=== PATIENT | female | born 1990 | race Caucasian/White ===

== ENCOUNTER → 2016-03-03 | Outpatient (CLI) | payer BC ==
--- NOTE | 2016-03-03 14:56 | MR ---
EXAMINATION TYPE: MR thoracic spine wo con DATE OF EXAM: 03/03/2016 11:23 AM COMPARISON: Thoracic spine x-ray December 26, 2015 HISTORY: Back pain per order. Sharp mid back pain for 2 months after work injury per patient. TECHNIQUE: Multiplanar, multisequence imaging of thoracic spine is performed without contrast FINDINGS: A Vitamin E marker is placed posteriorly for counting purposes and is at level of the T12-L 1 disc space. Spinal cord shows normal course, caliber, and signal as it courses the thoracic spine. Vertebral body heights and alignment are satisfactory. There is some multilevel disc space narrowin g in the midthoracic spine most prominent at T7-T8 level on sagittal image 7. Tiny posterior disc her niations are felt present at T8-T9 and T9-T10 level on sagittal image 7. Minimal multilevel anterior spurring in the mid to lower thoracic spine is present. There is some heterogeneous endplate changes involving the anterior T10 vertebra seen best on sagittal image 7. A few small scattered hemangiomas are noted at T6 and T9 vertebra on sagittal image 9. Review of the axial images confirm small central disc herniation effacing anterior thecal sac at T8-T 9 level on axial image 14 and right paracentral disc herniation effacing anterior thecal sac at T9-T1 0 level on axial image 11. Remainder axial levels are felt within normal limits. Bilateral neural for dylon are patent. Visualized portion of spleen is somewhat prominent, splenomegaly cannot be excluded . Clinical correlation advised. 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
== END | disposition home or self-care (01) ==
LOC: RADMRIMAIN 10:44
PROVIDERS: ATTEND Family Medicine
DX: M47.814 Spondylosis without myelopathy or radiculopathy, thoracic region (principal)
CPT/HCPCS: 72146

== ENCOUNTER → 2016-05-05 | Outpatient (CLI) | payer BC ==
[2016-05-06 11:59] LABS: Lettuce IgE Class CLASS 0
[2016-05-07 17:46] LABS: Tea IgG 4.8 mcg/mL (<2.0)
[2016-05-07 18:18] LABS: Corn IgG 16.9 mcg/mL (< 2.0); Peanut IgG 5.5 mcg/mL (< 2.0); Potato IgG 6.8 mcg/mL (< 2.0); Soybean IgG 5.5 mcg/mL (< 2.0); Tomato IgG 6.7 mcg/mL (< 2.0); Wheat IgG 51.7 mcg/mL (< 2.0)
[2016-05-10 14:53] LABS: Chocolate IgG 3.7 mcg/mL (< 2.0); Crab IgG < 2.0 mcg/mL (< 2.0); Orange IgG 4.7 mcg/mL (< 2.0); Pork IgG 3.5 mcg/mL (< 2.0); Walnut IgG 2.7 mcg/mL (< 2.0)
[2016-05-10 14:54] LABS: Banana IgG 89.3 mcg/mL (< 2.0); Celery IgG 5.4 mcg/mL (< 2.0); Chicken Meat IgG < 2.0 mcg/mL (< 2.0); Coffee IgG 15.9 mcg/mL (< 2.0); Egg Yolk IgG 19.3 mcg/mL (< 2.0)
[2016-05-10 14:55] LABS: Corn IgG 13.3 mcg/mL (< 2.0); Peanut IgG 3.9 mcg/mL (< 2.0); Potato IgG 5.2 mcg/mL (< 2.0); Rice IgG 16.4 mcg/mL (< 2.0); Soybean IgG 4.4 mcg/mL (< 2.0); Wheat IgG 46.2 mcg/mL (< 2.0)
[2016-05-12 09:50] LABS: Mis test requested (Blood) Onion IgG
[2016-05-12 09:57] LABS: Mis test requested (Blood) Shrimp IgG
[2016-05-12 10:00] LABS: Mis test requested (Blood) Salmon IgG
[2016-05-12 10:02] LABS: Mis test requested (Blood) Lobster IgG
[2016-05-12 10:05] LABS: Mis test requested (Blood) Strawberry IgG
== END | disposition home or self-care (01) ==
LOC: LABWHC1 15:43
PROVIDERS: ATTEND Otolaryngology
DX: L50.0 Allergic urticaria (principal); J30.89 Other allergic rhinitis; B44.89 Other forms of aspergillosis
CPT/HCPCS: 36415; 86001; 86003

== ENCOUNTER → 2017-05-16 | Outpatient (CLI) | payer BC ==
--- NOTE | 2017-05-16 15:04 | US ---
EXAMINATION TYPE: US transvaginal DATE OF EXAM: 05/16/2017 COMPARISON: NONE CLINICAL HISTORY: 27-year-old female R10.2 Pelvic/Peritoneal Pain. LLQ pain TECHNIQUE: With multiple transvaginal sonographic images of the pelvis are obtained. Date of LMP: 05/11/2017 Findings: Uterus: Anteverted measuring 6.4 x 3.3 x 2.0 cm with tiny cervical nabothian cysts. Endometrial Stripe: 0.3 cm, within normal limits. Right Ovary: 2.8 x 2.0 x 1.9 cm with follicular change. Left Ovary: 1.8 x 1.7 x 1.2 cm with a 1.5 cm dominant follicle or functional cyst. No evident adnexal abnormality or cul-de-sac free fluid. IMPRESSION: Follicular changes in both ovaries, dominant follicle on the left. No pelvic free fluid.
== END | disposition home or self-care (01) ==
LOC: RADUSWWP 14:20
PROVIDERS: ATTEND Family Medicine
DX: L73.8 Other specified follicular disorders (principal)
CPT/HCPCS: 76830

== ENCOUNTER → 2018-01-27 | Outpatient (CLI) | payer BC | END | disposition home or self-care (01) | LOC: LABWHC1 17:29 | PROVIDERS: ATTEND Emergency Medicine | DX: Z34.90 Encounter for supervision of normal pregnancy, unspecified, unspecified trimester (principal); Z3A.00 Weeks of gestation of pregnancy not specified | CPT/HCPCS: 36415; 84702 ==

== ENCOUNTER 2018-03-02 08:06 | Emergency (ER) | payer BC, OTHER ==
[2018-03-02 08:14] VITALS: TEMP 98.4
[2018-03-02] MEDS ORDERED: SODIUM CHLORIDE 0.9% 1,000 ML IV ONE (08:19)
--- NOTE | 2018-03-02 08:21 | ED ---
General Adult HPI - General Chief complaint: Vaginal Bleeding Stated complaint: cramping, 8 weeks Time Seen by Provider: 03/02/18 08:08 Source: patient, RN notes reviewed Mode of arrival: ambulatory Limitations: no limitations - History of Present Illness Initial comments: 28-year-old female presents emergency Department with chief complaint abdominal cramping and spotting during early . Patient states that she has not been seen [employer] at this time she states she is waiting for approval. Patient states that she's had some spotting and she went to last couple days. Denies any blood clots or tissue. Patient was seen at [facility] a few weeks ago and did have an ultrasound which showed no IUP at that time. Patient denies any fever, chills, dysuria. Patient denies any chest pain or shortness of breath. Patient states that she is A0. - Related Data Home Medications Medication Instructions Recorded Confirmed Calcium Carbonate [Tums] 1,000 mg PO TID PRN 03/02/18 03/02/18 Pnv,Calcium 72/Iron/Folic Acid 1 tab PO HS 03/02/18 03/02/18 [ Plus Tablet] Allergies Allergy/AdvReac Type Severity Reaction Status Date / Time codeine Allergy Nausea & Verified 03/02/18 08:40 Vomiting peanut Allergy Anaphylaxis Verified 03/02/18 08:40 sesame oil Allergy Anaphylaxis Verified 03/02/18 08:40 Sulfa (Sulfonamide Allergy Rash/Hives Verified 03/02/18 08:40 Antibiotics) tree nut Allergy Anaphylaxis Verified 03/02/18 08:40 Review of Systems ROS Statement: Those systems with pertinent positive or pertinent negative responses have been documented in the HPI. ROS Other: All systems not noted in ROS Statement are negative. Past Medical History Past Medical History: GERD/Reflux History of Any Multi-Drug Resistant Organisms: MRSA Date of last positivie culture/infection: 09/23/17 MDRO Source:: WOUND Past Surgical History: Adenoidectomy, Orthopedic Surgery, Tonsillectomy Past Psychological History: Anxiety Smoking Status: Former smoker Past Alcohol Use History: None Reported General Exam Limitations: no limitations General appearance: alert, in no apparent distress Head exam: Present: atraumatic, normocephalic, normal inspection Neck exam: Present: normal inspection. Absent: tenderness, meningismus, lymphadenopathy Respiratory exam: Present: normal lung sounds bilaterally. Absent: respiratory distress, wheezes, rales, rhonchi, stridor Cardiovascular Exam: Present: regular rate, normal rhythm, normal heart sounds. Absent: systolic murmur, diastolic murmur, rubs, gallop, clicks GI/Abdominal exam: Present: soft, normal bowel sounds. Absent: distended, tenderness, guarding, rebound, rigid Back exam: Absent: CVA tenderness (R), CVA tenderness (L) Skin exam: Present: warm, dry, intact, normal color. Absent: rash Course Vital Signs 03/02/18 08:08 Temperature 98.4 F Pulse Rate 88 Respiratory 16 Rate Blood Pressure 118/83 O2 Sat by Pulse 98 Oximetry Medical Decision Making - Medical Decision Making 28 show female presented to emergency department for abdominal cramping and spotting early . Patient has a positive blood type and does not need RhoGAM at this time. ultrasound shows demise at 8 weeks. No heart activity. I did explain this to the patient that she's having a miscarriage she should follow-up with [facility] [employer] and have repeat hCG. Current hCG is pending. Patient is hemodynamically stable, vitals unremarkable. Patient will be discharged with follow-up. - Lab Data Result diagrams: 03/02/18 08:30 03/02/18 08:30 Lab Results 03/02/18 03/02/18 03/02/18 Range/Units 08:30 08:30 08:30 WBC 6.8 (3.8-10.6) k/uL RBC 4.44 (3.80-5.40) m/uL Hgb 13.2 (11.4-16.0) gm/dL Hct 39.2 (34.0-46.0) % MCV 88.2 (80.0-100.0) fL MCH 29.7 (25.0-35.0) pg MCHC 33.7 (31.0-37.0) g/dL RDW 13.2 (11.5-15.5) % Plt Count 203 (150-450) k/uL Neutrophils % 61 % Lymphocytes % 29 % Monocytes % 3 % Eosinophils % 5 % Basophils % 1 % Neutrophils # 4.1 (1.3-7.7) k/uL Lymphocytes # 2.0 (1.0-4.8) k/uL Monocytes # 0.2 (0-1.0) k/uL Eosinophils # 0.3 (0-0.7) k/uL Basophils # 0.0 (0-0.2) k/uL Sodium 142 (137-145) mmol/L Potassium 3.7 (3.5-5.1) mmol/L Chloride 110 H (98-107) mmol/L Carbon Dioxide 22 (22-30) mmol/L Anion Gap 10 mmol/L BUN 11 (7-17) mg/dL Creatinine 0.59 (0.52-1.04) mg/dL Est GFR (CKD-EPI)AfAm >90 (>60 ml/min/1.73 sqM) Est GFR (CKD-EPI)NonAf >90 (>60 ml/min/1.73 sqM) Glucose 86 (74-99) mg/dL Calcium 9.5 (8.4-10.2) mg/dL Total Bilirubin 0.7 (0.2-1.3) mg/dL AST 22 (14-36) U/L ALT 19 (9-52) U/L Alkaline Phosphatase 44 (38-126) U/L Total Protein 7.2 (6.3-8.2) g/dL Albumin 4.5 (3.5-5.0) g/dL HCG, Quant 97506.4 mIU/mL Urine Color Urine Appearance (Clear) Urine pH (5.0-8.0) Ur Specific [place] (1.001-1.035) Urine Protein (Negative) Urine Glucose (UA) (Negative) Urine Ketones (Negative) Urine Blood (Negative) Urine Nitrite (Negative) Urine Bilirubin (Negative) Urine Urobilinogen (<2.0) mg/dL Ur Leukocyte Esterase (Negative) Urine RBC (0-5) /hpf Urine WBC (0-5) /hpf Ur Squamous Epith Cells (0-4) /hpf Urine Mucus (None) /hpf Blood Type A Positive Blood Type Recheck [facility] ONLY 03/02/18 Range/Units 08:30 WBC (3.8-10.6) k/uL RBC (3.80-5.40) m/uL Hgb (11.4-16.0) gm/dL Hct (34.0-46.0) % MCV (80.0-100.0) fL MCH (25.0-35.0) pg MCHC (31.0-37.0) g/dL RDW (11.5-15.5) % Plt Count (150-450) k/uL Neutrophils % % Lymphocytes % % Monocytes % % Eosinophils % % Basophils % % Neutrophils # (1.3-7.7) k/uL Lymphocytes # (1.0-4.8) k/uL Monocytes # (0-1.0) k/uL Eosinophils # (0-0.7) k/uL Basophils # (0-0.2) k/uL Sodium (137-145) mmol/L Potassium (3.5-5.1) mmol/L Chloride (98-107) mmol/L Carbon Dioxide (22-30) mmol/L Anion Gap mmol/L BUN (7-17) mg/dL Creatinine (0.52-1.04) mg/dL Est GFR (CKD-EPI)AfAm (>60 ml/min/1.73 sqM) Est GFR (CKD-EPI)NonAf (>60 ml/min/1.73 sqM) Glucose (74-99) mg/dL Calcium (8.4-10.2) mg/dL Total Bilirubin (0.2-1.3) mg/dL AST (14-36) U/L ALT (9-52) U/L Alkaline Phosphatase (38-126) U/L Total Protein (6.3-8.2) g/dL Albumin (3.5-5.0) g/dL HCG, Quant mIU/mL Urine Color Yellow Urine Appearance Clear (Clear) Urine pH 6.0 (5.0-8.0) Ur Specific [place] 1.018 (1.001-1.035) Urine Protein Negative (Negative) Urine Glucose (UA) Negative (Negative) Urine Ketones Negative (Negative) Urine Blood Negative (Negative) Urine Nitrite Negative (Negative) Urine Bilirubin Negative (Negative) Urine Urobilinogen <2.0 (<2.0) mg/dL Ur Leukocyte Esterase Trace H (Negative) Urine RBC <1 (0-5) /hpf Urine WBC <1 (0-5) /hpf Ur Squamous Epith Cells <1 (0-4) /hpf Urine Mucus Rare H (None) /hpf Blood Type Blood Type Recheck Disposition Clinical Impression: Miscarriage Disposition: HOME SELF-CARE Condition: Stable Instructions: Miscarriage (ED) Additional Instructions: Please return to the Emergency Department if symptoms worsen or any other concerns. Is patient prescribed a controlled substance at d/c from ED?: No Referrals: Antolin Griffiths MD [Primary Care Provider] - 1-2 days Time of Disposition: 10:15
[2018-03-02 09:00] LABS: Basophils % (A) 1 %; Eosinophils # (A) 0.3 k/uL (0-0.7); Eosinophils % (A) 5 %; HCT 39.2 % (34.0-46.0); HGB 13.2 gm/dL (11.4-16.0); Lymphocytes % (A) 29 %; MCH 29.7 pg (25.0-35.0); MCHC 33.7 g/dL (31.0-37.0); MCV 88.2 fL (80.0-100.0); Mean Platelet Volume 6.7; Monocytes # (A) 0.2 k/uL (0-1.0); Monocytes % (A) 3 %; Neutrophils # (A) 4.1 k/uL (1.3-7.7); Neutrophils % (A) 61 %; Platelet Count 203 k/uL (150-450); RBC 4.44 m/uL (3.80-5.40); RDW 13.2 % (11.5-15.5); WBC 6.8 k/uL (3.8-10.6)
[2018-03-02 09:01] LABS: Appearance,Urine Clear (Clear); Bilirubin,Urine Negative (Negative); Blood,Urine Negative (Negative); Color,Urine Yellow; Glucose,Urine (UA) Negative (Negative); Ketones,Urine Negative (Negative); Leukocyte Esterase,Urine Trace (Negative); Mucus,Urine Rare /hpf; Nitrite,Urine Negative (Negative); Protein,Urine Negative (Negative); RBC,Urine <1 /hpf (0-5); Specific Gravity,Urine 1.018 (1.001-1.035); Squamous Epithelial Cell,Urine <1 /hpf (0-4); Urobilinogen,Urine <2.0 mg/dL (<2.0)
[2018-03-02 09:18] LABS: ALT 19 U/L (9-52); AST 22 U/L (14-36); Albumin 4.5 g/dL (3.5-5.0); Alkaline Phosphatase 44 U/L (38-126); Anion Gap 10 mmol/L; Blood Urea Nitrogen 11 mg/dL (7-17); Calcium 9.5 mg/dL (8.4-10.2); Carbon Dioxide 22 mmol/L (22-30); Chloride 110 mmol/L (98-107); Glucose 86 mg/dL (74-99); Potassium 3.7 mmol/L (3.5-5.1); Sodium 142 mmol/L (137-145); Total Bilirubin 0.7 mg/dL (0.2-1.3); Total Protein 7.2 g/dL (6.3-8.2)
--- NOTE | 2018-03-02 10:02 | US ---
EXAMINATION TYPE: Transabdominal DATE OF EXAM: 05/17/17 COMPARISON: NONE CLINICAL HISTORY: Pain. Pt states cramping with brown spotting x 4 days EXAM PERFORMED: Transvaginal (TV) and Transabdominal (TA) EXAM MEASUREMENTS: GESTATIONAL AGE / DATING Physician Established: Not yet established Dates by LMP: (9 weeks/6 days) EDC: 09/29/2018 Dates by First Scan: No prior Dates by Current Scan for: (8 weeks/0 days) EDC: 10/12/2018 MATERNAL ANATOMY Uterus: 8.7 x 5.0 x 5.8 cm Right Ovary: 3.1 x 1.9 x 2.1 cm Left Ovary: 2.7 x 1.8 x 1.5 cm Post CDS / Adnexa: Small amount of free fluid post CDS Presence of corpus luteal cyst: Right ovary= 1.6 x 1.9 x 1.3 cm Presence of subchorionic bleed: No, Although there appears to be a 2 mm implantation bleed. GESTATION / SURVEY CRL: 1.5 cm (8 weeks/0 days) Yolk Sac (normal less than 6mm): 3mm IUP: Demise Date of LMP: 12/23/2017 8 week demise IMPRESSION: demise as color-flow, power flow, and M-mode fail to demonstrate cardiac activity. Confirmation with down stranding beta prior to D&C is recommended.
[2018-03-02 10:11] LABS: HCG,Quantitative Serum 31037.4 mIU/mL
[2018-03-02 10:24] VITALS: BP 126/76; PULSE 83; RESP 18
== END 2018-03-02 10:22 | disposition home or self-care (01) ==
LOC: EC 08:06
DX: O03.9 Complete or unspecified spontaneous abortion without complication (principal); Z3A.08 8 weeks gestation of pregnancy; Z88.5 Allergy status to narcotic agent; Z88.2 Allergy status to sulfonamides; Z91.010 Allergy to peanuts; Z91.018 Allergy to other foods; Z87.891 Personal history of nicotine dependence
CPT/HCPCS: 36415; 76801; 76817; 80053; 81001; 84702; 85025; 86900; 86901; 96360; 99284

== ENCOUNTER → 2018-03-04 | Outpatient (CLI) | payer OTHER | END | disposition home or self-care (01) | LOC: LABWHC1 09:52 | PROVIDERS: ATTEND Physician Assistant | DX: O03.9 Complete or unspecified spontaneous abortion without complication (principal) | CPT/HCPCS: 36415; 84702 ==

== ENCOUNTER 2018-03-06 15:57 | Emergency (ER) | payer OTHER ==
[2018-03-06 16:04] VITALS: RESP 16
[2018-03-06] MEDS ORDERED: SODIUM CHLORIDE 0.9% 1,000 ML IV ONE (17:16)
[2018-03-06 17:44] LABS: Basophils % (A) 0 %; Eosinophils # (A) 0.4 k/uL (0-0.7); Eosinophils % (A) 4 %; HCT 36.4 % (34.0-46.0); HGB 12.6 gm/dL (11.4-16.0); Lymphocytes # (A) 3.1 k/uL (1.0-4.8); Lymphocytes % (A) 28 %; MCH 30.2 pg (25.0-35.0); MCHC 34.6 g/dL (31.0-37.0); MCV 87.2 fL (80.0-100.0); Mean Platelet Volume 9.1; Monocytes # (A) 0.3 k/uL (0-1.0); Monocytes % (A) 3 %; Neutrophils # (A) 6.9 k/uL (1.3-7.7); Neutrophils % (A) 63 %; RBC 4.17 m/uL (3.80-5.40); RDW 13.1 % (11.5-15.5); WBC 10.9 k/uL (3.8-10.6)
[2018-03-06 17:52] LABS: Appearance,Urine Clear (Clear); Bilirubin,Urine Negative (Negative); Blood,Urine Large (Negative); Color,Urine Yellow; Glucose,Urine (UA) Negative (Negative); Ketones,Urine Negative (Negative); Leukocyte Esterase,Urine Small (Negative); Mucus,Urine Rare /hpf; Nitrite,Urine Negative (Negative); PH, Urine 5.5 (5.0-8.0); Protein,Urine Trace (Negative); RBC,Urine >182 /hpf (0-5); Specific Gravity,Urine 1.015 (1.001-1.035); Squamous Epithelial Cell,Urine 1 /hpf (0-4); Urobilinogen,Urine <2.0 mg/dL (<2.0); WBC,Urine 10 /hpf (0-5)
[2018-03-06 18:18] LABS: Platelet Count 79 k/uL (150-450)
[2018-03-06 18:22] LABS: ALT 25 U/L (9-52); AST 24 U/L (14-36); Albumin 4.5 g/dL (3.5-5.0); Alkaline Phosphatase 60 U/L (38-126); Anion Gap 10 mmol/L; Blood Urea Nitrogen 13 mg/dL (7-17); Calcium 9.6 mg/dL (8.4-10.2); Carbon Dioxide 22 mmol/L (22-30); Chloride 109 mmol/L (98-107); Glucose 84 mg/dL (74-99); Potassium 3.9 mmol/L (3.5-5.1); Sodium 141 mmol/L (137-145); Total Bilirubin 0.4 mg/dL (0.2-1.3); Total Protein 7.4 g/dL (6.3-8.2)
[2018-03-06 18:23] LABS: INR 0.9 (<1.2); Partial Thromboplastin Time 24.5 sec (22.0-30.0)
[2018-03-06 19:33] LABS: HCG,Quantitative Serum 21191.6 mIU/mL
--- NOTE | 2018-03-06 19:52 | US ---
EXAMINATION TYPE: Transabdominal DATE OF EXAM: 05/17/17 COMPARISON: 03/02/2018 ultrasound CLINICAL HISTORY: Cramping and bleeding, had missed AB . Scheduled for D&C tomorrow. EXAM PERFORMED: Transabdominal EXAM MEASUREMENTS: There is limited visualization on this transabdominal examination. The uterus measures 8.97 x 4.62 x 5.48 cm. The fundal gestational sac is mildly lobulated. The pole measuring 0.88 cm, corresponding to 6 week 6 day gestation. No cardiac activity was seen during the examination, which utilized grayscale, color Doppler, and pulsed wave Doppler son ographic techniques. There is no cul-de-sac fluid. IMPRESSION: No cardiac activity demonstrated.
--- NOTE | 2018-03-06 19:55 | ED ---
General Adult HPI <[place] - Last Filed: 03/06/18 20:27> - General Source: patient, RN notes reviewed Mode of arrival: ambulatory Limitations: no limitations <Mode Rapp - Last Filed: 03/06/18 20:48> - General Chief complaint: Vaginal Bleeding Stated complaint: Vaginal bleeding Time Seen by Provider: 03/06/18 16:39 - History of Present Illness Initial comments: The patient was seen and examined. All diagnostics are reviewed. The case is discussed with Dr. Colby and he is agreeable with pain control and discharged home to follow up with scheduled D&C in the a.m. Patient is agreeable as well. Return parameters are discussed. The case is discussed with the PA and I agree with the findings as documented. ([place]) 28-year-old female presents to the emergency department for miscarriage. Patient 8 weeks currently. Patient states that she was diagnosed with a miscarriage 5 days ago. She states that she has a DNC scheduled with Dr. Laboy tomorrow at 10 AM. She states that she had worsening cramping today as well as bleeding. She states that when she called the office they told her to come to the emergency department in case there was tissue in her cervix that we could remove. Patient states she has felt somewhat lightheaded today, denies chest pain or shortness of breath. Patient did have a confirmed IUP. Patient' s ultrasound from 5 days ago showed demise. Patient states she passed a small piece of tissue today but has not passed any other clots or tissue. Patient has no other complaints at this time including shortness of breath, chest pain, nausea or vomiting, headache, or visual changes. (Mode Rpap) - Related Data Home Medications Medication Instructions Recorded Confirmed Acetaminophen Tab [Tylenol Tab] 650 mg PO Q6H PRN 03/06/18 03/06/18 Omeprazole 20 mg PO BID 03/06/18 03/06/18 Previous Rx's Medication Instructions Recorded HYDROcodone/APAP 5-325MG [[place] 1 tab PO Q6HR PRN #10 tab 03/06/18 5-325] Ondansetron [Zofran ODT] 4 mg PO Q8HR PRN #7 tab 03/06/18 Allergies Allergy/AdvReac Type Severity Reaction Status Date / Time codeine Allergy Nausea & Verified 03/06/18 16:45 DIARRHEA ibuprofen [From Motrin] Allergy Rash/Hives Verified 03/06/18 16:45 peanut Allergy Anaphylaxis Verified 03/06/18 16:45 sesame oil Allergy Anaphylaxis Verified 03/06/18 16:45 Sulfa (Sulfonamide Allergy Rash/Hives Verified 03/06/18 16:45 Antibiotics) tree nut Allergy Anaphylaxis Verified 03/06/18 16:45 Review of Systems ROS Other: All systems not noted in ROS Statement are negative. <[place] - Last Filed: 03/06/18 20:27> ROS Other: All systems not noted in ROS Statement are negative. <Mode Rapp - Last Filed: 03/06/18 20:48> ROS Statement: Those systems with pertinent positive or pertinent negative responses have been documented in the HPI. Past Medical History Past Medical History: GERD/Reflux History of Any Multi-Drug Resistant Organisms: MRSA Date of last positivie culture/infection: 09/23/17 MDRO Source:: WOUND-VAGINA Past Surgical History: Adenoidectomy, Orthopedic Surgery, Tonsillectomy Additional Past Surgical History / Comment(s): LEFT MIDDLE FINGER SURGERY Past Anesthesia/Blood Transfusion Reactions: Motion Sickness Past Psychological History: Anxiety Smoking Status: Former smoker - Past Family History Father Family Medical History: Cancer Additional Family Medical History / Comment(s): COLON CANCER <Mode Rapp P - Last Filed: 03/06/18 20:48> General Exam Limitations: no limitations General appearance: alert, in no apparent distress Head exam: Present: atraumatic, normocephalic, normal inspection Eye exam: Present: normal appearance, PERRL, EOMI. Absent: scleral icterus, conjunctival injection, periorbital swelling ENT exam: Present: normal exam, mucous membranes moist Neck exam: Present: normal inspection, full ROM. Absent: tenderness, meningismus, lymphadenopathy Respiratory exam: Present: normal lung sounds bilaterally. Absent: respiratory distress, wheezes, rales, rhonchi, stridor Cardiovascular Exam: Present: regular rate, normal rhythm, normal heart sounds. Absent: systolic murmur, diastolic murmur, rubs, gallop, clicks GI/Abdominal exam: Present: soft, normal bowel sounds. Absent: distended, tenderness, guarding, rebound, rigid External exam: Present: normal external exam. Absent: erythema, swelling, lesions, lacerations, ecchymosis Speculum exam: Present: vaginal bleeding (Patient does have mild vaginal bleeding noted.). Absent: normal speculum exam, tissue (No tissue evident) By manual exam: Present: adnexal tenderness, uterine tenderness. Absent: normal by manual exam, cervical motion tenderness, adnexal mass, uterine enlargement Neurological exam: Present: alert, oriented X3, CN II-XII intact <Mode Rapp - Last Filed: 03/06/18 20:48> Vital Signs 03/06/18 16:02 Temperature 98.2 F Pulse Rate 95 Respiratory 16 Rate Blood Pressure 141/90 O2 Sat by Pulse 98 Oximetry Medical Decision Making - Lab Data Result diagrams: 03/06/18 17:10 03/06/18 17:55 <[place] - Last Filed: 03/06/18 20:27> - Lab Data Result diagrams: 03/06/18 17:10 03/06/18 17:55 - Radiology Data Radiology results: report reviewed, image reviewed <Mode Rapp - Last Filed: 03/06/18 20:48> - Medical Decision Making 28-year-old presents to the emergency department for miscarriage. Patient had a confirmed demise 5 days ago. She has a D&C scheduled with Dr. Donaldson tomorrow morning but had worsening pain and bleeding today so presented to the emergency department. On exam there is mild vaginal bleeding without significant hemorrhage. Patient does have tenderness on speculum exam. Cervix does appear open but I do not see any tissue. CBC CMP unremarkable. Hemoglobin is stable. Platelet count has decreased somewhat to 79 however patient is only having minimal bleeding. CMP unremarkable. CT Quant is trending down from 5 days ago. Urine does not show any significant evidence of infection. Patient is a positive not requiring RhoGAM. Ultrasound was reordered patient is scheduled for D&C tomorrow to evaluate for any remaining tissue which does show tissue without cardiac activity. Discussed case with Dr. Julian who contacted Dr. Monte as he is on-call for Dr. Donaldson. At this time he recommends pain control for patient and to follow-up tomorrow morning at her scheduled D&C. Patient is agreeable to this plan and states she only lives 2 [address] from the hospital and it is not an inconvenience. Patient will return if she has any worsening symptoms. (Mode Rapp) - Lab Data Lab Results 03/06/18 03/06/18 03/06/18 Range/Units 17:10 17:10 17:10 WBC 10.9 H (3.8-10.6) k/uL RBC 4.17 (3.80-5.40) m/uL Hgb 12.6 (11.4-16.0) gm/dL Hct 36.4 (34.0-46.0) % MCV 87.2 (80.0-100.0) fL MCH 30.2 (25.0-35.0) pg MCHC 34.6 (31.0-37.0) g/dL RDW 13.1 (11.5-15.5) % Plt Count 79 L D (150-450) k/uL Neutrophils % 63 % Lymphocytes % 28 % Monocytes % 3 % Eosinophils % 4 % Basophils % 0 % Neutrophils # 6.9 (1.3-7.7) k/uL Lymphocytes # 3.1 (1.0-4.8) k/uL Monocytes # 0.3 (0-1.0) k/uL Eosinophils # 0.4 (0-0.7) k/uL Basophils # 0.0 (0-0.2) k/uL Manual Slide Review Performed PT (9.0-12.0) sec INR (<1.2) APTT (22.0-30.0) sec Sodium (137-145) mmol/L Potassium (3.5-5.1) mmol/L Chloride (98-107) mmol/L Carbon Dioxide (22-30) mmol/L Anion Gap mmol/L BUN (7-17) mg/dL Creatinine (0.52-1.04) mg/dL Est GFR (CKD-EPI)AfAm (>60 ml/min/1.73 sqM) Est GFR (CKD-EPI)NonAf (>60 ml/min/1.73 sqM) Glucose (74-99) mg/dL Calcium (8.4-10.2) mg/dL Total Bilirubin (0.2-1.3) mg/dL AST (14-36) U/L ALT (9-52) U/L Alkaline Phosphatase (38-126) U/L Total Protein (6.3-8.2) g/dL Albumin (3.5-5.0) g/dL HCG, Quant mIU/mL Urine Color Yellow Urine Appearance Clear (Clear) Urine pH 5.5 (5.0-8.0) Ur Specific [place] 1.015 (1.001-1.035) Urine Protein Trace H (Negative) Urine Glucose (UA) Negative (Negative) Urine Ketones Negative (Negative) Urine Blood Large H (Negative) Urine Nitrite Negative (Negative) Urine Bilirubin Negative (Negative) Urine Urobilinogen <2.0 (<2.0) mg/dL Ur Leukocyte Esterase Small H (Negative) Urine RBC >182 H (0-5) /hpf Urine WBC 10 H (0-5) /hpf Ur Squamous Epith Cells 1 (0-4) /hpf Urine Mucus Rare H (None) /hpf Blood Type A Positive Blood Type Recheck No 03/06/18 03/06/18 Range/Units 17:55 17:55 WBC (3.8-10.6) k/uL RBC (3.80-5.40) m/uL Hgb (11.4-16.0) gm/dL Hct (34.0-46.0) % MCV (80.0-100.0) fL MCH (25.0-35.0) pg MCHC (31.0-37.0) g/dL RDW (11.5-15.5) % Plt Count (150-450) k/uL Neutrophils % % Lymphocytes % % Monocytes % % Eosinophils % % Basophils % % Neutrophils # (1.3-7.7) k/uL Lymphocytes # (1.0-4.8) k/uL Monocytes # (0-1.0) k/uL Eosinophils # (0-0.7) k/uL Basophils # (0-0.2) k/uL Manual Slide Review PT 10.0 (9.0-12.0) sec INR 0.9 (<1.2) APTT 24.5 (22.0-30.0) sec Sodium 141 (137-145) mmol/L Potassium 3.9 (3.5-5.1) mmol/L Chloride 109 H (98-107) mmol/L Carbon Dioxide 22 (22-30) mmol/L Anion Gap 10 mmol/L BUN 13 (7-17) mg/dL Creatinine 0.74 (0.52-1.04) mg/dL Est GFR (CKD-EPI)AfAm >90 (>60 ml/min/1.73 sqM) Est GFR (CKD-EPI)NonAf >90 (>60 ml/min/1.73 sqM) Glucose 84 (74-99) mg/dL Calcium 9.6 (8.4-10.2) mg/dL Total Bilirubin 0.4 (0.2-1.3) mg/dL AST 24 (14-36) U/L ALT 25 (9-52) U/L Alkaline Phosphatase 60 (38-126) U/L Total Protein 7.4 (6.3-8.2) g/dL Albumin 4.5 (3.5-5.0) g/dL HCG, Quant 09415.6 mIU/mL Urine Color Urine Appearance (Clear) Urine pH (5.0-8.0) Ur Specific [place] (1.001-1.035) Urine Protein (Negative) Urine Glucose (UA) (Negative) Urine Ketones (Negative) Urine Blood (Negative) Urine Nitrite (Negative) Urine Bilirubin (Negative) Urine Urobilinogen (<2.0) mg/dL Ur Leukocyte Esterase (Negative) Urine RBC (0-5) /hpf Urine WBC (0-5) /hpf Ur Squamous Epith Cells (0-4) /hpf Urine Mucus (None) /hpf Blood Type Blood Type Recheck Disposition <[place] - Last Filed: 03/06/18 20:27> Is patient prescribed a controlled substance at d/c from ED?: Yes When asked, does pt state using other controlled substances?: No If prescribed controlled substance>3 days was MAPS reviewed?: Prescribed <3 Days If opioid is for acute pain is fill amount 7 days or less?: Yes If Rx opioid, was Start Talking consent form obtained?: Yes Time of Disposition: 20:35 <Mode Rapp - Last Filed: 03/06/18 20:48> Clinical Impression: Miscarriage Disposition: HOME SELF-CARE Condition: Good Additional Instructions: Please follow up with Dr. Donaldson tomorrow at your scheduled D&C. Please take [place] for pain. Please return if you have any worsening symptoms. Prescriptions: HYDROcodone/APAP 5-325MG [[place] 5-325] 1 tab PO Q6HR PRN #10 tab PRN Reason: Pain Ondansetron [Zofran ODT] 4 mg PO Q8HR PRN #7 tab PRN Reason: Nausea Referrals: Antolin Griffiths MD [Primary Care Provider] - 1-2 days Criss Donaldson DO [Doctor of Osteopathic Medicine] - 1-2 days
[2018-03-06] MEDS ORDERED: MORPHINE SULFATE 4 MG/ML SYRINGE IVP STA (20:31)
[2018-03-06] MEDS ORDERED: ONDANSETRON 4 MG/2 ML VIAL IVP STA (20:31)
[2018-03-06] MEDS ORDERED: ONDANSETRON 4 MG ODT STARTER PACK 2 TAB BTL PO STA (20:57)
[2018-03-06 21:15] VITALS: BP 138/80; PULSE 82; TEMP 97.7
== END 2018-03-06 21:15 | disposition home or self-care (01) ==
LOC: EC 15:57
DX: O03.9 Complete or unspecified spontaneous abortion without complication (principal); O99.611 Diseases of the digestive system complicating pregnancy, first trimester; K21.9 Gastro-esophageal reflux disease without esophagitis; Z86.14 Personal history of Methicillin resistant Staphylococcus aureus infection; Z87.891 Personal history of nicotine dependence; Z79.899 Other long term (current) drug therapy; Z88.5 Allergy status to narcotic agent; Z88.6 Allergy status to analgesic agent; Z91.010 Allergy to peanuts; Z91.018 Allergy to other foods; Z88.2 Allergy status to sulfonamides; Z3A.01 Less than 8 weeks gestation of pregnancy
CPT/HCPCS: 36415; 86900; 86901; 80053; 85025; 85610; 85730; 81001; 84702; 76801; 99284; 96374; 96375; 96361; J2270; J2405; S0119

== ENCOUNTER 2018-03-07 10:19 | Day surgery (SDC) | payer OTHER ==
[2018-03-06 15:13] VITALS: BMI 31.4
--- NOTE | 2018-03-07 10:04 | P.HPOB ---
History of Present Illness H&P Date: 03/07/18 Chief Complaint: missed AB This is a 28-year-old 1 para 0010 at 9 6/7 weeksthat presented to the emergency department this weekend and was diagnosed with missed AB, IUP 8 weeks 0 days heart tones was noted. Patient was seen in the emergency department with complaints of vaginal bleeding off-and-on for 4 days. Moderate bleeding was noted yesterday. She does note painful pelvic cramping and is using ibuprofen with some relief. Blood type is A+. Review of Systems Constitutional: Denies chills, Denies fatigue, Denies fever Ears, nose, mouth and throat: Denies headache Cardiovascular: Denies leg edema Respiratory: Denies cough, Denies dyspnea Gastrointestinal: Denies constipation, Denies diarrhea, Denies nausea, Denies vomiting Genitourinary: Reports Past Medical History Past Medical History: GERD/Reflux History of Any Multi-Drug Resistant Organisms: MRSA Date of last positivie culture/infection: 09/23/17 MDRO Source:: WOUND-VAGINA Past Surgical History: Adenoidectomy, Orthopedic Surgery, Tonsillectomy Additional Past Surgical History / Comment(s): LEFT MIDDLE FINGER SURGERY Past Anesthesia/Blood Transfusion Reactions: Motion Sickness Smoking Status: Former smoker - Past Family History Father Family Medical History: Cancer Additional Family Medical History / Comment(s): COLON CANCER Medications and Allergies Home Medications Medication Instructions Recorded Confirmed Type Acetaminophen Tab [Tylenol Tab] 650 mg PO Q6H PRN 03/06/18 03/06/18 History HYDROcodone/APAP 5-325MG [[place] 1 tab PO Q6HR PRN #10 tab 03/06/18 Rx 5-325] Omeprazole 20 mg PO BID 03/06/18 03/06/18 History Ondansetron [Zofran ODT] 4 mg PO Q8HR PRN #7 tab 03/06/18 Rx Allergies Allergy/AdvReac Type Severity Reaction Status Date / Time codeine Allergy Nausea & Verified 03/06/18 16:45 DIARRHEA ibuprofen [From Motrin] Allergy Rash/Hives Verified 03/06/18 16:45 peanut Allergy Anaphylaxis Verified 03/06/18 16:45 sesame oil Allergy Anaphylaxis Verified 03/06/18 16:45 Sulfa (Sulfonamide Allergy Rash/Hives Verified 03/06/18 16:45 Antibiotics) tree nut Allergy Anaphylaxis Verified 03/06/18 16:45 Exam Osteopathic Statement: *. No significant issues noted on an osteopathic structural exam other than those noted in the History and Physical/Consult. Intake and Output 03/06/18 03/07/18 03/07/18 22:59 06:59 14:59 Other: Weight 81.647 kg In general this is a well-nourished well-developed female in no acute distress. Lungs are clear to auscultation bilaterally, heart is noted to have regular rate and rhythm soft and nontender. Assessment and Plan (1) Missed Status: Acute Code(s): O02.1 - MISSED SNOMED Code(s): 23881967 Plan: Patient elects suction D&C. Surgery was reviewed and all questions are answered.
[~2018-03-07 10:19] MED LIST: Pre Op ABX Message 1 EACH MISC MISCELLANE ONE
[2018-03-07 11:00] VITALS: RESP 16
[2018-03-07] MEDS ORDERED: METHYLERGONOVINE 0.2 MG/ML 1 ML AMP ONE (11:08)
[2018-03-07] MEDS ORDERED: PROPOFOL 10 MG/ML 20 ML VIAL IV ONE (11:08)
[2018-03-07] MEDS ORDERED: LACTATED RINGERS 1,000 ML IV ONE (11:08)
[2018-03-07] MEDS ORDERED: MIDAZOLAM 2 MG/2 ML VIAL ONE (11:08)
[2018-03-07] MEDS ORDERED: fentaNYL (PF) 50 MCG/ML 2 ML AMP ONE (11:08)
[2018-03-07] MEDS ORDERED: DEXAMETHASONE SOD PHOS (MDV) 100 MG/10 ML VIAL IVP ONE (11:09)
[2018-03-07] MEDS ORDERED: LIDOCAINE 1% 20 ML VIAL (10MG/ML) FOR IV START INTRADERMA ONE (11:09)
[2018-03-07] MEDS ORDERED: ONDANSETRON 4 MG/2 ML VIAL IVP ONE ×2 (11:10→12:56)
--- NOTE | 2018-03-07 11:38 | P.OP ---
Date of Procedure: 03/07/18 Preoperative Diagnosis: Missed AB Postoperative Diagnosis: Same Procedure(s) Performed: Suction dilation and curettage Anesthesia: MAC Surgeon: Criss Donaldson Estimated Blood Loss (ml): 10 IV fluids (ml): 500 Urine output (ml): 25 Pathology: other (Uterine contents) Condition: stable Disposition: PACU Indications for Procedure: Missed AB 8 weeks 0 days, Rh+ Operative Findings: Moderate amount of products of conception Description of Procedure: Patient was seen in the preoperative area and procedure was reviewed in detail. All questions were answered. Patient was taken back to the operating suite where general anesthesia was obtained without difficulty by the anesthesia department. She was then prepped and draped in normal sterile fashion in the dorsal lithotomy position. A red rubber catheter was used to drain the bladder of clear yellow urine. A weighted speculum posterior vaginal vault intralipids the cervix is visualized and grasped a single-tooth tenaculum. Endocervical canal was then dilated 8 curved suction curet was advanced into the uterine cavity to clear the uterus of a moderate amount of products of conception 2 passes were used to clear when no further products were visualized in the suction curette. A sharp gentle curettage was performed and the suction curet was passed once again with no further products of conception noted. Afterwards the single-tooth tenaculum was taken off of the anterior lip of the cervix, hemostasis was appreciated. Minimal bleeding was noted coming from the cervical os. All counts were correct 2 patient tolerated procedure well and was taken to recovery awake and in stable condition.
[2018-03-07 11:57] VITALS: TEMP 99.2
[2018-03-07] MEDS ORDERED: HYDROmorphone 0.5 MG/0.5 ML SYRINGE IVP ONE ×2 (12:01→12:23)
[2018-03-07 13:11] VITALS: BP 117/78; PULSE 90
== END 2018-03-07 13:38 | disposition home or self-care (01) ==
LOC: OR 10:19
PROVIDERS: ATTEND Obstetrics & Gynecology Obstetrics
DX: O02.1 Missed abortion (principal); K21.9 Gastro-esophageal reflux disease without esophagitis; F41.9 Anxiety disorder, unspecified; Z87.891 Personal history of nicotine dependence; Z79.899 Other long term (current) drug therapy; Z88.5 Allergy status to narcotic agent; Z88.2 Allergy status to sulfonamides; Z86.14 Personal history of Methicillin resistant Staphylococcus aureus infection
CPT/HCPCS: 86900; 86901; 88305; 86850; 59820; J2250; J2210; J2405; J3010; J1100; J2704; J1170

== ENCOUNTER → 2018-03-29 | Outpatient (CLI) | payer OTHER ==
[2018-03-29 22:58] LABS: HCG,Quantitative Serum 8.4 mIU/mL
[2018-03-29 23:10] LABS: Thyroid Peroxidase Antibodies <28.0 U/mL (0.0-60.0)
[2018-03-29 23:30] LABS: Hepatitis B Surface AB- Quant 3.5 mIU/mL
== END | disposition home or self-care (01) ==
LOC: LABWHC1 16:49
PROVIDERS: ATTEND Nurse Practitioner Family
DX: R53.83 Other fatigue (principal)
CPT/HCPCS: 36415; 84439; 84443; 84702; 86376; 86706

== ENCOUNTER → 2018-04-13 | Outpatient (CLI) | payer OTHER | LOC: LABWHC1 16:57 | PROVIDERS: ATTEND Otolaryngology | DX: Z09 Encounter for follow-up examination after completed treatment for conditions other than malignant neoplasm (principal); Z98.890 Other specified postprocedural states | CPT/HCPCS: 36415; 84702 ==

== ENCOUNTER 2018-07-11 09:31 | Emergency (ER) | payer OTHER ==
[2018-07-11 09:59] VITALS: RESP 18
--- NOTE | 2018-07-11 10:15 | ED ---
General Adult HPI - General Chief complaint: Vaginal Bleeding Stated complaint: 7 wks /bleeding Time Seen by Provider: 07/11/18 10:04 Source: patient, RN notes reviewed Mode of arrival: ambulatory Limitations: no limitations - History of Present Illness Initial comments: 28-year-old female presents to the emergency department for a chief c omplaint of vaginal bleeding. Patient is currently 6 weeks 6 days . Patient states she began having a moderate amount of bleeding one hour ago. States she has had a miscarriage in the past so became concerned. Patient did try to contact her [facility] but was unable to obtain an appointment. Patient admits to cramping but denies any pelvic pain. Patient does states she's had a confirmed intrauterine . Patient has no other complaints at this time including shortness of breath, chest pain, abdominal pain, nausea or vomiting, headache, or visual changes. - Related Data Home Medications Medication Instructions Recorded Confirmed Ufw-Cout-Kjkse Acid 1 cap PO DAILY 07/11/18 07/11/18 [-U Capsule (formulary)] Allergies Allergy/AdvReac Type Severity Reaction Status Date / Time codeine Allergy Nausea & Verified 07/11/18 10:20 DIARRHEA ibuprofen [From Motrin] Allergy Rash/Hives Verified 07/11/18 10:20 peanut Allergy Anaphylaxis Verified 07/11/18 10:20 sesame oil Allergy Anaphylaxis Verified 07/11/18 10:20 Sulfa (Sulfonamide Allergy Rash/Hives Verified 07/11/18 10:20 Antibiotics) tree nut Allergy Anaphylaxis Verified 07/11/18 10:20 Review of Systems ROS Statement: Those systems with pertinent positive or pertinent negative responses have been documented in the HPI. ROS Other: All systems not noted in ROS Statement are negative. Past Medical History Past Medical History: GERD/Reflux History of Any Multi-Drug Resistant Organisms: MRSA Date of last positivie culture/infection: 09/23/17 MDRO Source:: WOUND-VAGINA Past Surgical History: Adenoidectomy, Orthopedic Surgery, Tonsillectomy Additional Past Surgical History / Comment(s): LEFT MIDDLE FINGER SURGERY, Past Anesthesia/Blood Transfusion Reactions: Motion Sickness Past Psychological History: Anxiety Smoking Status: Former smoker Past Alcohol Use History: Occasional Past Drug Use History: None Reported - Past Family History Father Family Medical History: Cancer Additional Family Medical History / Comment(s): COLON CANCER General Exam Limitations: no limitations General appearance: alert, in no apparent distress Head exam: Present: atraumatic, normocephalic, normal inspection Eye exam: Present: normal appearance, PERRL, EOMI. Absent: scleral icterus, conjunctival injection, periorbital swelling ENT exam: Present: normal exam, mucous membranes moist Neck exam: Present: normal inspection, full ROM. Absent: tenderness, meningismus, lymphadenopathy Respiratory exam: Present: normal lung sounds bilaterally. Absent: respiratory distress, wheezes, rales, rhonchi, stridor Cardiovascular Exam: Present: regular rate, normal rhythm, normal heart sounds. Absent: systolic murmur, diastolic murmur, rubs, gallop, clicks GI/Abdominal exam: Present: soft, normal bowel sounds. Absent: distended, tenderness, guarding, rebound, rigid External exam: Present: normal external exam. Absent: erythema, swelling, lesions, lacerations, ecchymosis Speculum exam: Present: normal speculum exam, vaginal bleeding (minimal bleeding noted). Absent: erythema, vaginal discharge, cervical discharge, foreign body By manual exam: Present: normal by manual exam. Absent: cervical motion tenderness, adnexal tenderness, adnexal mass, uterine enlargement, uterine tenderness Neurological exam: Present: alert, oriented X3, CN II-XII intact Psychiatric exam: Present: normal affect, normal mood Course Vital Signs 07/11/18 07/11/18 07/11/18 09:56 13:07 13:52 Temperature 99 F 98.0 F 98.5 F Pulse Rate 98 76 Respiratory 18 18 Rate Blood Pressure 128/80 116/74 O2 Sat by Pulse 98 98 Oximetry Medical Decision Making - Medical Decision Making 28-year-old presents to the emergency department for a chief Vaginal bleeding. Patient currently 6 weeks 6 days . Had a moderate amount of bleeding for 1 hour. Has had a miscarriage in the past so became concerned. Mild cramping noted. On exam patient is well-appearing. Pelvic reveals only minimal bleeding. CBC CMP unremarkable. HCG Quant 20,000. Urine does not show any evidence of infection. Ultrasound does show an irregular appearing intrauterine gestational sac without pole seen. Suspicious of failure/and embryonic . Recommended ultrasound 5 days as well as serum beta hCGs. Patient was prescribed serum beta hCG to repeat in 2 days. Case was discussed by Dr. Peacock to Dr. Donaldson. She is aware of the situation. Discussed with patient that ultrasound was recommended in 5 days. Discussed following up with Dr. Donaldson returning here if she has any worsening symptoms. - Lab Data Result diagrams: 07/11/18 10:10 07/11/18 10:10 Lab Results 07/11/18 07/11/18 07/11/18 Range/Units 10:10 10:10 10:34 WBC 9.3 (3.8-10.6) k/uL RBC 4.67 (3.80-5.40) m/uL Hgb 13.2 (11.4-16.0) gm/dL Hct 38.8 (34.0-46.0) % MCV 83.0 (80.0-100.0) fL MCH 28.3 (25.0-35.0) pg MCHC 34.1 (31.0-37.0) g/dL RDW 13.9 (11.5-15.5) % Plt Count 216 (150-450) k/uL Neutrophils % 65 % Lymphocytes % 28 % Monocytes % 3 % Eosinophils % 2 % Basophils % 1 % Neutrophils # 6.0 (1.3-7.7) k/uL Lymphocytes # 2.6 (1.0-4.8) k/uL Monocytes # 0.3 (0-1.0) k/uL Eosinophils # 0.2 (0-0.7) k/uL Basophils # 0.1 (0-0.2) k/uL Sodium 138 (137-145) mmol/L Potassium 3.7 (3.5-5.1) mmol/L Chloride 110 H (98-107) mmol/L Carbon Dioxide 18 L (22-30) mmol/L Anion Gap 10 mmol/L BUN 12 (7-17) mg/dL Creatinine 0.54 (0.52-1.04) mg/dL Est GFR (CKD-EPI)AfAm >90 (>60 ml/min/1.73 sqM) Est GFR (CKD-EPI)NonAf >90 (>60 ml/min/1.73 sqM) Glucose 84 (74-99) mg/dL Calcium 9.4 (8.4-10.2) mg/dL Total Bilirubin 0.7 (0.2-1.3) mg/dL AST 28 (14-36) U/L ALT 15 (9-52) U/L Alkaline Phosphatase 51 (38-126) U/L Total Protein 7.4 (6.3-8.2) g/dL Albumin 4.6 (3.5-5.0) g/dL HCG, Quant 81031.0 mIU/mL Urine Color Urine Appearance (Clear) Urine pH (5.0-8.0) Ur Specific [place] (1.001-1.035) Urine Protein (Negative) Urine Glucose (UA) (Negative) Urine Ketones (Negative) Urine Blood (Negative) Urine Nitrite (Negative) Urine Bilirubin (Negative) Urine Urobilinogen (<2.0) mg/dL Ur Leukocyte Esterase (Negative) Urine WBC (0-5) /hpf Ur Squamous Epith Cells (0-4) /hpf Urine HCG, Qual (Not Detectd) Trichomonas Ag (Rapid) Negative (Negative) 07/11/18 07/11/18 Range/Units 10:34 10:34 WBC (3.8-10.6) k/uL RBC (3.80-5.40) m/uL Hgb (11.4-16.0) gm/dL Hct (34.0-46.0) % MCV (80.0-100.0) fL MCH (25.0-35.0) pg MCHC (31.0-37.0) g/dL RDW (11.5-15.5) % Plt Count (150-450) k/uL Neutrophils % % Lymphocytes % % Monocytes % % Eosinophils % % Basophils % % Neutrophils # (1.3-7.7) k/uL Lymphocytes # (1.0-4.8) k/uL Monocytes # (0-1.0) k/uL Eosinophils # (0-0.7) k/uL Basophils # (0-0.2) k/uL Sodium (137-145) mmol/L Potassium (3.5-5.1) mmol/L Chloride (98-107) mmol/L Carbon Dioxide (22-30) mmol/L Anion Gap mmol/L BUN (7-17) mg/dL Creatinine (0.52-1.04) mg/dL Est GFR (CKD-EPI)AfAm (>60 ml/min/1.73 sqM) Est GFR (CKD-EPI)NonAf (>60 ml/min/1.73 sqM) Glucose (74-99) mg/dL Calcium (8.4-10.2) mg/dL Total Bilirubin (0.2-1.3) mg/dL AST (14-36) U/L ALT (9-52) U/L Alkaline Phosphatase (38-126) U/L Total Protein (6.3-8.2) g/dL Albumin (3.5-5.0) g/dL HCG, Quant mIU/mL Urine Color Colorless Urine Appearance Clear (Clear) Urine pH 6.5 (5.0-8.0) Ur Specific [place] 1.003 (1.001-1.035) Urine Protein Negative (Negative) Urine Glucose (UA) Negative (Negative) Urine Ketones Trace H (Negative) Urine Blood Negative (Negative) Urine Nitrite Negative (Negative) Urine Bilirubin Negative (Negative) Urine Urobilinogen <2.0 (<2.0) mg/dL Ur Leukocyte Esterase Trace H (Negative) Urine WBC 2 (0-5) /hpf Ur Squamous Epith Cells 1 (0-4) /hpf Urine HCG, Qual Detected (Not Detectd) Trichomonas Ag (Rapid) (Negative) Disposition Clinical Impression: Threatened miscarriage Disposition: HOME SELF-CARE Condition: Good Instructions (If sedation given, give patient instructions): Miscarriage (ED) Additional Instructions: Please repeat blood work in 2 days. Follow-up with [facility] in 2 days. It is recommended you have another ultrasound in 5 days as well. Return here for having any worsening symptoms. Is patient prescribed a controlled substance at d/c from ED?: No Referrals: Antolin Griffiths MD [Primary Care Provider] - 1-2 days Time of Disposition: 13:30
[2018-07-11] MEDS ORDERED: SODIUM CHLORIDE 0.9% 1,000 ML IV ONE (10:22)
[2018-07-11 10:33] LABS: Basophils # (A) 0.1 k/uL (0-0.2); Basophils % (A) 1 %; Eosinophils # (A) 0.2 k/uL (0-0.7); Eosinophils % (A) 2 %; HCT 38.8 % (34.0-46.0); HGB 13.2 gm/dL (11.4-16.0); Lymphocytes # (A) 2.6 k/uL (1.0-4.8); Lymphocytes % (A) 28 %; MCH 28.3 pg (25.0-35.0); MCHC 34.1 g/dL (31.0-37.0); Mean Platelet Volume 7.1; Monocytes # (A) 0.3 k/uL (0-1.0); Monocytes % (A) 3 %; Neutrophils % (A) 65 %; Platelet Count 216 k/uL (150-450); RBC 4.67 m/uL (3.80-5.40); RDW 13.9 % (11.5-15.5); WBC 9.3 k/uL (3.8-10.6)
[2018-07-11 10:45] LABS: ALT 15 U/L (9-52); AST 28 U/L (14-36); Albumin 4.6 g/dL (3.5-5.0); Alkaline Phosphatase 51 U/L (38-126); Anion Gap 10 mmol/L; Blood Urea Nitrogen 12 mg/dL (7-17); Calcium 9.4 mg/dL (8.4-10.2); Carbon Dioxide 18 mmol/L (22-30); Chloride 110 mmol/L (98-107); Glucose 84 mg/dL (74-99); Potassium 3.7 mmol/L (3.5-5.1); Sodium 138 mmol/L (137-145); Total Bilirubin 0.7 mg/dL (0.2-1.3); Total Protein 7.4 g/dL (6.3-8.2)
[2018-07-11 10:58] LABS: Appearance,Urine Clear (Clear); Bilirubin,Urine Negative (Negative); Blood,Urine Negative (Negative); Color,Urine Colorless; Glucose,Urine (UA) Negative (Negative); Ketones,Urine Trace (Negative); Leukocyte Esterase,Urine Trace (Negative); Nitrite,Urine Negative (Negative); PH, Urine 6.5 (5.0-8.0); Protein,Urine Negative (Negative); Specific Gravity,Urine 1.003 (1.001-1.035); Squamous Epithelial Cell,Urine 1 /hpf (0-4); Urobilinogen,Urine <2.0 mg/dL (<2.0); WBC,Urine 2 /hpf (0-5)
--- NOTE | 2018-07-11 12:01 | US ---
EXAMINATION TYPE: Transabdominal DATE OF EXAM: 07/11/2018 11:37 AM COMPARISON: NONE CLINICAL HISTORY: pain. Patient states started bleeding this morning. Hx of miscarriage x few months ago at 8 weeks. Patient states having an ultrasound performed last seen in the OB office and everyt rodrigo was visualized. EXAM PERFORMED: Transvaginal (TV) and Transabdominal (TA) EXAM MEASUREMENTS: GESTATIONAL AGE / DATING Dates by LMP: (8 weeks/0 days) EDC: 02/20/2019 Dates by Current Scan for: (5 weeks/2 days) EDC: 03/11/2019 MATERNAL ANATOMY Uterus: 7.1 x 4.5 x 4.0 cm Right Ovary: 2.8 x 1.8 x 1.9 cm Left Ovary: 2.6 x 1.4 x 1.1 cm Post CDS / Adnexa: free fluid in CDS Presence of free fluid: no Presence of corpus luteal cyst: right ovarian hypoechoic lesion - 1.5 x 1.4 x 1.2 cm Presence of subchorionic bleed: hypoechoic areas seen adjacent to GS. 1- in fundal region = 0.8 x 0. 9 x 0.4 cm. 2- in LAURA= 1.6 x 1.0 x 0.6 cm GESTATION / SURVEY CRL: Not visualized MSD: 1.2 (5 weeks/2 days) Yolk Sac (normal less than 6mm): 2.7 mm IUP: GS and YS seen within endometrial canal Date of LMP: 05/16/2018, A1 Beta HcG (if available): 72544 GS and YS seen. CRL not visualized. GS appears irregular in shape. Possible subchorionic bleeds vi sualized. IMPRESSION: Irregular appearing intrauterine gestational sac and yolk sac however no pole is yet seen. This is abnormal as a pole should be seen with beta-hCG of 20,507. However mean sac diameter is les s than 25 mm and therefore findings remain suspicious of but not diagnostic of failure/anem bryonic . Additionally small areas of implantation bleeds are seen. Follow-up ultrasound in 5 days is recommended in addition to serial serum beta hCGs.
[2018-07-11] MEDS ORDERED: METOCLOPRAMIDE 5 MG/ML 2 ML VIAL IVP STA (12:48)
[2018-07-11] MEDS ORDERED: ACETAMINOPHEN TAB 500 MG TAB PO STA (12:49)
[2018-07-11 13:54] VITALS: BP 116/74; PULSE 76; TEMP 98.5
[2018-07-12 14:29] LABS: N. gonorrhoeae,PCR Negative (Neg,Equiv); Neisseria Source Vagina
[2018-07-12 15:07] LABS: C. trachomatis,PCR Negative (Neg,Equiv); Chlamydia trachomatis Source Vagina
== END 2018-07-11 13:55 | disposition home or self-care (01) ==
LOC: EC 09:31
DX: O20.0 Threatened abortion (principal); Z87.891 Personal history of nicotine dependence; Z88.2 Allergy status to sulfonamides; Z88.5 Allergy status to narcotic agent; Z88.6 Allergy status to analgesic agent; Z91.010 Allergy to peanuts; Z91.018 Allergy to other foods; Z86.14 Personal history of Methicillin resistant Staphylococcus aureus infection; Z87.59 Personal history of other complications of pregnancy, childbirth and the puerperium; Z3A.01 Less than 8 weeks gestation of pregnancy
CPT/HCPCS: 99284; 96374; 96361; 36415; 80053; 85025; 81001; 81025; 84702; 87808; 87491; 87591; 87070; 76801; 76817; J2765; 87205

== ENCOUNTER → 2018-07-13 | Outpatient (CLI) | payer OTHER | END | disposition home or self-care (01) | LOC: LABWHC1 13:41 | PROVIDERS: ATTEND Physician Assistant Medical | DX: O20.0 Threatened abortion (principal); Z3A.00 Weeks of gestation of pregnancy not specified | CPT/HCPCS: 36415; 84702 ==

== ENCOUNTER → 2018-07-19 | Outpatient (CLI) | payer OTHER ==
[2018-07-19 17:31] LABS: Basophils # (A) 0.1 k/uL (0-0.2); Basophils % (A) 1 %; Eosinophils # (A) 0.4 k/uL (0-0.7); Eosinophils % (A) 4 %; HCT 44.1 % (34.0-46.0); HGB 13.8 gm/dL (11.4-16.0); Lymphocytes % (A) 41 %; MCH 27.5 pg (25.0-35.0); MCHC 31.3 g/dL (31.0-37.0); MCV 87.9 fL (80.0-100.0); Monocytes # (A) 0.3 k/uL (0-1.0); Monocytes % (A) 3 %; Neutrophils # (A) 4.7 k/uL (1.3-7.7); Neutrophils % (A) 49 %; Platelet Count 221 k/uL (150-450); RBC 5.02 m/uL (3.80-5.40); RDW 14.1 % (11.5-15.5); WBC 9.5 k/uL (3.8-10.6)
== END | disposition home or self-care (01) ==
LOC: LABPAT 16:31
PROVIDERS: ATTEND Obstetrics & Gynecology Obstetrics
DX: Z01.812 Encounter for preprocedural laboratory examination (principal); O03.9 Complete or unspecified spontaneous abortion without complication
CPT/HCPCS: 85025; 86850; 86900; 86901

== ENCOUNTER 2018-07-20 10:29 | Day surgery (SDC) | payer OTHER ==
[2018-07-20] MEDS ORDERED: LACTATED RINGERS 1,000 ML IV ONE (11:19)
[2018-07-20] MEDS ORDERED: DEXAMETHASONE SOD PHOS (MDV) 100 MG/10 ML VIAL IV ONE (11:31)
[2018-07-20] MEDS ORDERED: SCOPOLAMINE 1.5MG/72HR PATCH TRANSDERM ONE (11:32)
[2018-07-20] MEDS ORDERED: ONDANSETRON 4 MG/2 ML VIAL IVP ONE ×2 (11:32→13:57)
[2018-07-20] MEDS ORDERED: LIDOCAINE 1% 20 ML VIAL (10MG/ML) FOR IV START INTRADERMA ONE (11:32)
[2018-07-20] MEDS ORDERED: MIDAZOLAM 2 MG/2 ML VIAL ONE (13:01)
[2018-07-20] MEDS ORDERED: METHYLERGONOVINE 0.2 MG/ML 1 ML AMP ONE (13:01)
[2018-07-20] MEDS ORDERED: PROPOFOL 10 MG/ML 20 ML VIAL IV ONE (13:01)
[2018-07-20] MEDS ORDERED: LIDOCAINE 1% INJ 10MG/ML (20 ML MDV) ONE (13:01)
[2018-07-20] MEDS ORDERED: fentaNYL (PF) 50 MCG/ML 2 ML AMP ONE (13:01)
--- NOTE | 2018-07-20 13:35 | P.OP ---
Date of Procedure: 07/20/18 Preoperative Diagnosis: Missed AB Postoperative Diagnosis: Same Procedure(s) Performed: Suction dilation and curettage Anesthesia: NABIL Surgeon: Criss Donaldson Estimated Blood Loss (ml): 50 IV fluids (ml): 600 Urine output (ml): 100 Pathology: other (Uterine contents) Condition: stable Disposition: PACU Indications for Procedure: Missed AB, 6 weeks no heart tones Rh+ Operative Findings: Moderate amount of products of conception Description of Procedure: This is a 28-year-old that presents for suction dilation and curettage secondary to diagnosis of missed AB. Patient was seen in the preoperative area and informed consent was obtained and all cautions were answered. Patient was taken to the operating suite where general anesthesia was obtained without dif ficulty by the anesthesia department. She was then prepped and draped in normal sterile fashion in the dorsal lithotomy position. Red rubber catheter was then used to drain the bladder of clear yellow urine. Weighted speculum was placed in the posterior vaginal vault the anterior lip of the cervix was visualized and grasped with single-tooth tenaculum. The endocervical canal was then dilated to 18-Turk[place]. An 8 mm curved curet was then advanced through the cervix and toward the endometrial cavity the suction was activated and a moderate amount of products of conception were removed. This procedure was then repeated 3 times. Afterwards a sharp curettage was performed until all products were felt to be removed. Once again the suction curet was placed to ensure all products had been removed from the endometrial cavity. The uterus sounded to be firm at this time, the CO2 tenaculum was taken off of the anterior lip of the cervix and hemostasis was appreciated. All instruments removed from patient's vaginal vault. Next All counts are correct 2 patient tolerated procedure well and is taken to the recovery room awake in stable condition.
[2018-07-20 13:40] VITALS: TEMP 98.1
[2018-07-20 13:50] VITALS: RESP 16
[2018-07-20] MEDS ORDERED: HYDROmorphone 1 MG/ML 1 ML SYRINGE IVP ONE ×2 (13:57→14:03)
[2018-07-20] MEDS ORDERED: ACETAMINOPHEN TAB 325 MG TAB PO ONE (14:35)
[2018-07-20 14:50] VITALS: BP 101/64; PULSE 97
== END 2018-07-20 15:11 | disposition home or self-care (01) ==
LOC: OR 10:29
PROVIDERS: ATTEND Obstetrics & Gynecology Obstetrics
DX: O02.1 Missed abortion (principal); K21.9 Gastro-esophageal reflux disease without esophagitis; F41.9 Anxiety disorder, unspecified; Z88.1 Allergy status to other antibiotic agents; Z88.5 Allergy status to narcotic agent; Z88.0 Allergy status to penicillin; Z88.2 Allergy status to sulfonamides; Z91.048 Other nonmedicinal substance allergy status; Z83.3 Family history of diabetes mellitus; Z82.49 Family history of ischemic heart disease and other diseases of the circulatory system; Z79.899 Other long term (current) drug therapy
CPT/HCPCS: 88305; 59820; J2250; J2210; J2405; J2001; J3010; J1170; J1100; J2704

== ENCOUNTER → 2018-08-14 | Outpatient (CLI) | payer OTHER | END | disposition home or self-care (01) | LOC: LABWHC1 11:31 | PROVIDERS: ATTEND Nurse Practitioner Family | DX: N91.2 Amenorrhea, unspecified (principal) | CPT/HCPCS: 36415; 84702 ==

== ENCOUNTER → 2019-05-02 | Outpatient (CLI) | payer OTHER | END | disposition home or self-care (01) | LOC: LABWHC1 10:51 | PROVIDERS: ATTEND Otolaryngology | DX: R05 Cough (principal) | CPT/HCPCS: 87502; U0002 ==

== ENCOUNTER 2020-04-24 16:00 | Emergency (ER) | payer OTHER ==
[2020-04-24] MEDS ORDERED: ONDANSETRON 4 MG/2 ML VIAL IVP STA (16:19)
[2020-04-24] MEDS ORDERED: SODIUM CHLORIDE 0.9% 1,000 ML IV STA (16:19)
--- NOTE | 2020-04-24 16:31 | ED ---
Nausea/Vomiting/Diarrhea HPI - General Chief complaint: Nausea/Vomiting/Diarrhea Stated complaint: 29wks, vomiting Time Seen by Provider: 04/24/20 16:19 Source: patient, RN notes reviewed Mode of arrival: ambulatory Limitations: no limitations - History of Present Illness Initial comments: Patient is a 30-year-old female who is only 9 weeks that presents to the emergency department for dehydration. She went to her [facility]IGH [facility] JUSTICE today for a regular follow-up appointment and they told her to come to the ER due to 3 days of vomiting, diarrhea. She notes that the first day she was having out both ends with diarrhea and vomiting, the second day legislative at night and then today she was unable to hold anything down but hasn't vomited to much. She notes that she just feels like she has a bubbly gut and some GI unrest. He notes that she has been eating a bland diet to try to help with keeping food down and not upsetting her stomach. She noted that she just feels tired. She noted her [facility] JUSTICE sent to the ER to get IV hydration therapy. She denied any constipation the such as abdominal cramping spotting bleeding. She denied any chest pain shortness of breath headache constipation fever fatigue chills - Related Data Home Medications Medication Instructions Recorded Confirmed Kov-Trnh-Pluiu Acid 1 cap PO HS 07/11/18 04/24/20 [-U Capsule (formulary)] Aspirin EC [Ecotrin Low Dose] 81 mg PO HS 04/24/20 04/24/20 Cholecalciferol [Vitamin D3 (25 25 mcg PO HS 04/24/20 04/24/20 Mcg = 1000 Iu)] Magnesium Powder 162.5 mg PO HS 04/24/20 04/24/20 Allergies Allergy/AdvReac Type Severity Reaction Status Date / Time codeine Allergy Nausea & Verified 04/24/20 17:13 DIARRHEA ibuprofen [From Motrin] Allergy Rash/Hives Verified 04/24/20 17:13 peanut Allergy Anaphylaxis Verified 04/24/20 17:13 sesame oil Allergy Anaphylaxis Verified 04/24/20 17:13 Sulfa (Sulfonamide Allergy Rash/Hives Verified 04/24/20 17:13 Antibiotics) tree nut Allergy Anaphylaxis Verified 04/24/20 17:13 Review of Systems ROS Statement: Those systems with pertinent positive or pertinent negative responses have been documented in the HPI. ROS Other: All systems not noted in ROS Statement are negative. Past Medical History Past Medical History: GERD/Reflux History of Any Multi-Drug Resistant Organisms: MRSA Date of last positivie culture/infection: 09/23/17 MDRO Source:: WOUND-VAGINA Past Surgical History: Adenoidectomy, Orthopedic Surgery, Tonsillectomy Additional Past Surgical History / Comment(s): LEFT MIDDLE FINGER SURGERY, Past Anesthesia/Blood Transfusion Reactions: Motion Sickness Past Psychological History: Anxiety Smoking Status: Never smoker Past Alcohol Use History: Occasional Past Drug Use History: None Reported - Past Family History Father Family Medical History: Cancer Additional Family Medical History / Comment(s): COLON CANCER General Exam Limitations: no limitations General appearance: alert, in no apparent distress Head exam: Present: atraumatic, normocephalic, normal inspection Eye exam: Present: normal appearance, PERRL, EOMI. Absent: scleral icterus, conjunctival injection, periorbital swelling ENT exam: Present: normal exam, mucous membranes moist Neck exam: Present: normal inspection. Absent: tenderness, meningismus, lymphadenopathy Respiratory exam: Present: normal lung sounds bilaterally. Absent: respiratory distress, wheezes, rales, rhonchi, stridor Cardiovascular Exam: Present: regular rate, normal rhythm, normal heart sounds. Absent: systolic murmur, diastolic murmur, rubs, gallop, clicks GI/Abdominal exam: Present: soft, normal bowel sounds. Absent: distended, tenderness, guarding, rebound, rigid Extremities exam: Present: normal inspection, full ROM, normal capillary refill. Absent: tenderness, pedal edema, joint swelling, calf tenderness Neurological exam: Present: alert, oriented X3, CN II-XII intact Psychiatric exam: Present: normal affect, normal mood Skin exam: Present: warm, dry, intact, normal color. Absent: rash Course Vital Signs 04/24/20 16:06 Temperature 98.4 F Pulse Rate 93 Respiratory 17 Rate Blood Pressure 112/71 O2 Sat by Pulse 99 Oximetry Medical Decision Making - Medical Decision Making 22-year-old female is 29 week with a three-day history of nausea vomiting and some diarrhea. Labs, 1 L normal saline, influenza test, 4 mg of Zofran ordered. Labs unremarkable. Case discussed with Dr. Boswell, patient discharged home. - Lab Data Result diagrams: 04/24/20 16:48 04/24/20 16:48 Lab Results 04/24/20 04/24/20 04/24/20 Range/Units 16:48 16:48 17:35 WBC 15.8 H (3.8-10.6) k/uL RBC 4.02 (3.80-5.40) m/uL Hgb 11.8 (11.4-16.0) gm/dL Hct 35.1 (34.0-46.0) % MCV 87.4 (80.0-100.0) fL MCH 29.5 (25.0-35.0) pg MCHC 33.7 (31.0-37.0) g/dL RDW 13.7 (11.5-15.5) % Plt Count 232 (150-450) k/uL MPV 7.4 Neutrophils % 77 % Lymphocytes % 17 % Monocytes % 3 % Eosinophils % 2 % Basophils % 0 % Neutrophils # 12.2 H (1.3-7.7) k/uL Lymphocytes # 2.6 (1.0-4.8) k/uL Monocytes # 0.5 (0-1.0) k/uL Eosinophils # 0.3 (0-0.7) k/uL Basophils # 0.0 (0-0.2) k/uL Sodium 136 L (137-145) mmol/L Potassium 4.4 (3.5-5.1) mmol/L Chloride 108 H (98-107) mmol/L Carbon Dioxide 19 L (22-30) mmol/L Anion Gap 9 mmol/L BUN 5 L (7-17) mg/dL Creatinine 0.41 L (0.52-1.04) mg/dL Est GFR (CKD-EPI)AfAm >90 (>60 ml/min/1.73 sqM) Est GFR (CKD-EPI)NonAf >90 (>60 ml/min/1.73 sqM) Glucose 95 (74-99) mg/dL Calcium 8.8 (8.4-10.2) mg/dL Total Bilirubin 0.6 (0.2-1.3) mg/dL AST 52 H (14-36) U/L ALT 25 (4-34) U/L Alkaline Phosphatase 74 (38-126) U/L Total Protein 6.7 (6.3-8.2) g/dL Albumin 3.6 (3.5-5.0) g/dL Amylase 51 (30-110) U/L Lipase 53 (23-300) U/L Urine Color Urine Appearance (Clear) Urine pH (5.0-8.0) Ur Specific [place] (1.001-1.035) Urine Protein (Negative) Urine Glucose (UA) (Negative) Urine Ketones (Negative) Urine Blood (Negative) Urine Nitrite (Negative) Urine Bilirubin (Negative) Urine Urobilinogen (<2.0) mg/dL Ur Leukocyte Esterase (Negative) Urine RBC (0-5) /hpf Urine WBC (0-5) /hpf Ur Squamous Epith Cells (0-4) /hpf Calcium Oxalate Crystal (None) /hpf Urine Bacteria (None) /hpf Urine Mucus (None) /hpf Urine Yeast (Budding) (None) /hpf Urine Sperm (None) /hpf Influenza Type A RNA Not Detected (Not Detectd) Influenza Type B (PCR) Not Detected (Not Detectd) 04/24/20 Range/Units 17:40 WBC (3.8-10.6) k/uL RBC (3.80-5.40) m/uL Hgb (11.4-16.0) gm/dL Hct (34.0-46.0) % MCV (80.0-100.0) fL MCH (25.0-35.0) pg MCHC (31.0-37.0) g/dL RDW (11.5-15.5) % Plt Count (150-450) k/uL MPV Neutrophils % % Lymphocytes % % Monocytes % % Eosinophils % % Basophils % % Neutrophils # (1.3-7.7) k/uL Lymphocytes # (1.0-4.8) k/uL Monocytes # (0-1.0) k/uL Eosinophils # (0-0.7) k/uL Basophils # (0-0.2) k/uL Sodium (137-145) mmol/L Potassium (3.5-5.1) mmol/L Chloride (98-107) mmol/L Carbon Dioxide (22-30) mmol/L Anion Gap mmol/L BUN (7-17) mg/dL Creatinine (0.52-1.04) mg/dL Est GFR (CKD-EPI)AfAm (>60 ml/min/1.73 sqM) Est GFR (CKD-EPI)NonAf (>60 ml/min/1.73 sqM) Glucose (74-99) mg/dL Calcium (8.4-10.2) mg/dL Total Bilirubin (0.2-1.3) mg/dL AST (14-36) U/L ALT (4-34) U/L Alkaline Phosphatase (38-126) U/L Total Protein (6.3-8.2) g/dL Albumin (3.5-5.0) g/dL Amylase (30-110) U/L Lipase (23-300) U/L Urine Color Yellow Urine Appearance Cloudy H (Clear) Urine pH 6.0 (5.0-8.0) Ur Specific [place] 1.011 (1.001-1.035) Urine Protein Negative (Negative) Urine Glucose (UA) Negative (Negative) Urine Ketones Negative (Negative) Urine Blood Negative (Negative) Urine Nitrite Negative (Negative) Urine Bilirubin Negative (Negative) Urine Urobilinogen <2.0 (<2.0) mg/dL Ur Leukocyte Esterase Large H (Negative) Urine RBC 6 H (0-5) /hpf Urine WBC 23 H (0-5) /hpf Ur Squamous Epith Cells 12 H (0-4) /hpf Calcium Oxalate Crystal Occasional H (None) /hpf Urine Bacteria Moderate H (None) /hpf Urine Mucus Moderate H (None) /hpf Urine Yeast (Budding) Few H (None) /hpf Urine Sperm Rare (None) /hpf Influenza Type A RNA (Not Detectd) Influenza Type B (PCR) (Not Detectd) Disposition Clinical Impression: Gastroenteritis, Dehydration Disposition: HOME SELF-CARE Condition: Stable Instructions (If sedation given, give patient instructions): Acute Nausea and Vomiting (ED) Additional Instructions: Please return to the Emergency Department if symptoms worsen or any other concerns. Starter pack of Zofran to take as needed. Follow-up with [facility] at the next scheduled appointment. Increase oral fluid intake. Continue to eat a bland diet as gastritis is a self-limiting disease. Is patient prescribed a controlled substance at d/c from ED?: No Referrals: Antolin Griffiths MD [Primary Care Provider] - 1-2 days Time of Disposition: 18:20
[2020-04-24 16:58] LABS: Basophils % (A) 0 %; Eosinophils # (A) 0.3 k/uL (0-0.7); Eosinophils % (A) 2 %; HCT 35.1 % (34.0-46.0); HGB 11.8 gm/dL (11.4-16.0); Lymphocytes # (A) 2.6 k/uL (1.0-4.8); Lymphocytes % (A) 17 %; MCH 29.5 pg (25.0-35.0); MCHC 33.7 g/dL (31.0-37.0); MCV 87.4 fL (80.0-100.0); Mean Platelet Volume 7.4; Monocytes # (A) 0.5 k/uL (0-1.0); Monocytes % (A) 3 %; Neutrophils # (A) 12.2 k/uL (1.3-7.7); Neutrophils % (A) 77 %; Platelet Count 232 k/uL (150-450); RBC 4.02 m/uL (3.80-5.40); RDW 13.7 % (11.5-15.5); WBC 15.8 k/uL (3.8-10.6)
[2020-04-24 17:07] LABS: ALT 25 U/L (4-34); AST 52 U/L (14-36); African American GFR (CKD) >90 (>60 ml/min/1.73 sqM); Albumin 3.6 g/dL (3.5-5.0); Alkaline Phosphatase 74 U/L (38-126); Amylase 51 U/L (30-110); Anion Gap 9 mmol/L; Blood Urea Nitrogen 5 mg/dL (7-17); Calcium 8.8 mg/dL (8.4-10.2); Carbon Dioxide 19 mmol/L (22-30); Chloride 108 mmol/L (98-107); Glucose 95 mg/dL (74-99); Lipase 53 U/L (23-300); Non-African American GFR(CKD) >90 (>60 ml/min/1.73 sqM); Sodium 136 mmol/L (137-145); Total Bilirubin 0.6 mg/dL (0.2-1.3); Total Protein 6.7 g/dL (6.3-8.2)
[2020-04-24 17:09] LABS: Potassium 4.4 mmol/L (3.5-5.1)
[2020-04-24 18:00] LABS: Appearance,Urine Cloudy (Clear); Bacteria,Urine Moderate /hpf; Bilirubin,Urine Negative (Negative); Blood,Urine Negative (Negative); Budding Yeast,Urine Few /hpf; Calcium Oxalate Crystals,Urine Occasional /hpf; Color,Urine Yellow; Glucose,Urine (UA) Negative (Negative); Ketones,Urine Negative (Negative); Leukocyte Esterase,Urine Large (Negative); Mucus,Urine Moderate /hpf; Nitrite,Urine Negative (Negative); Protein,Urine Negative (Negative); RBC,Urine 6 /hpf (0-5); Specific Gravity,Urine 1.011 (1.001-1.035); Sperm,Urine Rare /hpf; Squamous Epithelial Cell,Urine 12 /hpf (0-4); Urobilinogen,Urine <2.0 mg/dL (<2.0); WBC,Urine 23 /hpf (0-5)
[2020-04-24] MEDS ORDERED: ONDANSETRON 4 MG ODT STARTER PACK 2 TAB BTL PO STA (18:09)
[2020-04-24 18:48] VITALS: BP 116/80; PULSE 86; RESP 18; TEMP 98
== END 2020-04-24 18:56 | disposition home or self-care (01) ==
LOC: EC 16:00
DX: O99.281 Endocrine, nutritional and metabolic diseases complicating pregnancy, first trimester (principal); E86.0 Dehydration; K21.9 Gastro-esophageal reflux disease without esophagitis; K52.9 Noninfective gastroenteritis and colitis, unspecified; Z3A.09 9 weeks gestation of pregnancy
CPT/HCPCS: 36415; 80053; 82150; 83690; 85025; 81001; 87086; 87502; 99284; 96374; 96361; S0119

== ENCOUNTER 2020-06-12 14:01 | Outpatient (CLI) | payer OTHER ==
[2020-06-12] MEDS ORDERED: ONDANSETRON 4 MG/2 ML VIAL IVP STA (14:13)
[2020-06-12] MEDS ORDERED: LACTATED RINGERS 1,000 ML IV SCH (14:15)
[2020-06-12 16:08] VITALS: BP 119/73; PULSE 100; RESP 16; TEMP 97
--- NOTE | 2020-06-20 14:13 | P.MSEPDOC ---
Presenting Problems - Arrival Data Date of Arrival on Unit: 06/12/20 Time of Arrival on Unit: 14:01 Mode of Transport: Ambulatory - Complaint OB-Reason for Admission/Chief Complaint: Acute Nausea/Vomiting Medical History - Information : 3 Para: 0 Term: 0 : 0 Abortions: Spontaneous or Elective: 2 Number of Living Children: 0 - Gestational Age Gestational Age by JOON (wks/days): 36 Weeks and 4 Days Review of Systems - Review of Systems Constitutional: No problems Breast: No problems ENT: No problems Cardiovascular: No problems Respiratory: No problems Gastrointestinal: No problems Genitourinary: No problems Musculoskeletal: No problems Neurological: No problems Skin: No problems Vital Signs - Temperature Temperature: 97.0 F Temperature Source: Temporal Artery Scan - Pulse Right Sitting Pulse Rate: 100 Pulse Assessment Method: Automatic Cuff - Respirations Respiratory Rate: 16 Oxygen Delivery Method: Room Air - Blood Pressure Right Arm Blood Pressure: 119/73 Blood Pressure Mean: 88 Blood Pressure Source: Automatic Cuff Medical Screen Scoring (Pre) - Cervical Exam Dilation: Exam Deferred Effacement: Exam Deferred - Uterine Contractions Frequency: N/A Duration: N/A Intensity: N/A - Maternal Vital Signs Maternal Temperature: N/A Maternal Blood Pressure: N/A Signs of Preeclampsia: N/A Maternal Respirations: N/A - Maternal Trauma Maternal Trauma: N/A - Assessment - Baby A Baseline FHR: 145 Heart Rate - NICHD Category: Category I (Normal) = 0 NST: Reactive Position: N/A Station: N/A - Total Score - Baby A Total Score - Baby A: 0 - Total Score - Baby B Total Score - Baby B: 0 - Total Score - Baby C Total Score - Baby C: 0 - Level of Risk - Baby A Level of Risk - Baby A: Low (0-5) - Level of Risk - Baby B Level of Risk - Baby B: Low (0-5) - Level of Risk - Baby C Level of Risk - Baby C: Low (0-5) Physician Notification (Pre) - Physician Notified Physician Notified Date: 06/12/20 Physician Notified Time: 15:53 New Order Received: Yes (d/c home) Disposition - Disposition OB Disposition: Discharge to home Discharge Date: 06/12/20 Discharge Time: 15:58 I agree with the RN Medical Screening Exam: Yes Physician's MSE Comment: Patient was not seen or examined by myself Case reviewed; plan agreed upon as documented in EMR&OBIX.: Yes Diagnosis: RELATED CONDITIONS, UNSPECIFIED, THIRD TRIMESTER
== END 2020-06-12 15:58 | disposition home or self-care (01) ==
LOC: FBPOP 14:01
PROVIDERS: ATTEND Obstetrics & Gynecology Obstetrics
DX: O26.93 Pregnancy related conditions, unspecified, third trimester (principal); Z3A.36 36 weeks gestation of pregnancy
CPT/HCPCS: 59025; 96361; 96374; 87635; J2405

== ENCOUNTER 2020-07-08 13:00 | Inpatient (IN) | payer OTHER ==
[2020-07-08] MEDS ORDERED: CARBOPROST TROMETHAMINE 250 MCG/ML 1 ML AMP IM PRN (13:12)
[2020-07-08] MEDS ORDERED: TERBUTALINE 1 MG/ML VIAL SQ PRN (13:12)
[2020-07-08] MEDS ORDERED: LIDOCAINE 0.5% (PF) 5 MG/ML (50 ML SDV) SQ PRN (13:12)
[2020-07-08] MEDS ORDERED: METHYLERGONOVINE 0.2 MG/ML 1 ML AMP IM PRN (13:12)
[2020-07-08] MEDS ORDERED: OXYTOCIN 10 UNIT/ML 1 ML VIAL IM PRN (13:12)
[2020-07-08] MEDS ORDERED: OXYTOCIN 30 UNITS/500 ML NS 30 UNIT in SALINE 1 500ML.BAG IV SCH (13:15)
[2020-07-08 13:29] LABS: Basophils % (A) 0 %; Eosinophils # (A) 0.2 k/uL (0-0.7); Eosinophils % (A) 2 %; HCT 38.7 % (34.0-46.0); HGB 12.7 gm/dL (11.4-16.0); Lymphocytes # (A) 1.8 k/uL (1.0-4.8); Lymphocytes % (A) 14 %; MCH 28.5 pg (25.0-35.0); MCHC 32.8 g/dL (31.0-37.0); MCV 86.9 fL (80.0-100.0); Mean Platelet Volume 8.5; Monocytes # (A) 0.3 k/uL (0-1.0); Monocytes % (A) 3 %; Neutrophils # (A) 10.8 k/uL (1.3-7.7); Neutrophils % (A) 81 %; Platelet Count 199 k/uL (150-450); RBC 4.45 m/uL (3.80-5.40); RDW 14.3 % (11.5-15.5); WBC 13.2 k/uL (3.8-10.6)
[2020-07-08] MEDS: LACTATED RINGERS 1,000 ML IV SCH ×3 (13:32→23:00)
[2020-07-08] MEDS ORDERED: SODIUM CHLORIDE 0.9% 100 ML BAG ONE (17:21)
[2020-07-08] MEDS ORDERED: ROPIVACAINE 5MG/ML 20ML VIAL ONE (17:21)
[2020-07-08] MEDS ORDERED: fentaNYL (PF) 50 MCG/ML 5 ML AMP ONE (17:21)
--- NOTE | 2020-07-08 18:13 | P.HPOB ---
History of Present Illness H&P Date: 07/08/20 Chief Complaint: IUP at 40-3/7 weeks, postdates, LGA This is a 30-year-old at 40-3/7 weeks that presents to labor and delivery for induction of labor secondary to postdates and suspected LGA. Patient ultrasound the office revealing an estimated weight of 9 lbs. 1 oz. patient had been receiving routine care which has been essentially uncomplicated with the exception of some low back pain and sciatica for which she saw a chiropractor. Patient does note good movement but denies loss of fluid or vaginal bleeding. On bloodwork this patient has a blood type of A+, rubella status immune, Hep B sAG negative, RPR neg GBS neg Review of Systems Constitutional: Reports fatigue, Denies chills, Denies fever Ears, nose, mouth and throat: Denies headache Cardiovascular: Reports leg edema Gastrointestinal: Denies constipation, Denies diarrhea, Denies nausea, Denies vomiting Genitourinary: Reports Past Medical History Past Medical History: GERD/Reflux History of Any Multi-Drug Resistant Organisms: MRSA Date of last positivie culture/infection: 09/23/17 MDRO Source:: WOUND-VAGINA Past Surgical History: Adenoidectomy, Orthopedic Surgery, Tonsillectomy Additional Past Surgical History / Comment(s): LEFT MIDDLE FINGER SURGERY, Past Anesthesia/Blood Transfusion Reactions: Motion Sickness Past Psychological History: Anxiety Smoking Status: Never smoker Past Alcohol Use History: Occasional Additional Past Alcohol Use History / Comment(s): SMOKED ON A RARE OCCASION ONCE EVERY 6 MONTHS A TEEN -QUIT Past Drug Use History: None Reported - Past Family History Father Family Medical History: Cancer Additional Family Medical History / Comment(s): COLON CANCER Medications and Allergies Home Medications Medication Instructions Recorded Confirmed Type Lyo-Jxgh-Oigkl Acid 1 cap PO HS 07/11/18 07/08/20 History [-U Capsule (formulary)] Aspirin EC [Ecotrin Low Dose] 81 mg PO HS 04/24/20 07/08/20 History Cholecalciferol [Vitamin D3 (25 25 mcg PO HS 04/24/20 07/08/20 History Mcg = 1000 Iu)] Loratadine [Claritin] 10 mg PO DAILY 07/08/20 07/08/20 History Allergies Allergy/AdvReac Type Severity Reaction Status Date / Time avocado Allergy Anaphylaxis Verified 07/08/20 13:12 codeine Allergy Nausea & Verified 06/12/20 14:12 DIARRHEA kiwi Allergy Anaphylaxis Verified 07/08/20 13:12 peanut Allergy Anaphylaxis Verified 06/12/20 14:12 sesame oil Allergy Anaphylaxis Verified 06/12/20 14:12 Sulfa (Sulfonamide Allergy Rash/Hives Verified 06/12/20 14:12 Antibiotics) tree nut Allergy Anaphylaxis Verified 06/12/20 14:12 Exam Osteopathic Statement: *. No significant issues noted on an osteopathic struct ural exam other than those noted in the History and Physical/Consult. 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 heart tones are category 1 and she is alejandro irregularly. Results Result Diagrams: 07/08/20 13:13 Abnormal Lab Results - Last 24 Hours (Table) 07/08/20 Range/Units 13:13 WBC 13.2 H (3.8-10.6) k/uL Neutrophils # 10.8 H (1.3-7.7) k/uL Assessment and Plan (1) Post-dates Current Visit: Yes Status: Acute Code(s): O48.0 - POST-TERM SNOMED Code(s): 75171544 Plan: Patient is admitted to labor and delivery for scheduled induction of labor secondary to postdates and suspected LGA. Patient is admitted amniotomy is pe rformed thin meconium-stained fluid is appreciated. Pitocin augmentation of labor is begun in addition. Options for analgesia including Stadol and epidural are discussed with patient patient will consider.
[2020-07-08] MEDS ORDERED: ROPIVACAINE 100 MG, fentaNYL (PF). 200 MCG in SODIUM CHLORIDE 0.9% 76 ML EPIDURAL ONE (20:38)
[2020-07-09] MEDS ORDERED: ACETAMINOPHEN IV (For NPO) 1,000 MG in EMPTY BAG 1 BAG IVPB ONE ×2 (00:30→04:30)
[2020-07-09] MEDS ORDERED: AMPICILLIN 2,000 MG in SODIUM CHLORIDE 0.9% 100 ML IVPB ONE (00:30)
[2020-07-09] MEDS ORDERED: CITRIC ACID-SODIUM CITRATE 15 ML CUP PO ONE (02:25)
[2020-07-09] MEDS: LACTATED RINGERS 1,000 ML IV SCH ×3 (02:39→20:03)
[2020-07-09] MEDS ORDERED: diphenhydrAMINE 25 MG CAP PO PRN (02:40)
[2020-07-09] MEDS ORDERED: diphenhydrAMINE 50 MG/ML 1 ML VIAL IVP PRN ×2 (02:40)
[2020-07-09] MEDS ORDERED: ONDANSETRON 4 MG/2 ML VIAL IVP PRN (02:40)
[2020-07-09] MEDS ORDERED: NALOXONE 0.4 MG/ML 1 ML VIAL IV PRN (02:40)
[2020-07-09] MEDS ORDERED: diphenhydrAMINE 50 MG CAP PO PRN (02:40)
[2020-07-09] MEDS ORDERED: ZOLPIDEM 5 MG TAB PO PRN (02:40)
[2020-07-09] MEDS ORDERED: METOCLOPRAMIDE 5 MG/ML 2 ML VIAL IVP PRN (02:40)
[2020-07-09] MEDS ORDERED: ONDANSETRON 4 MG/2 ML VIAL ONE (02:42)
[2020-07-09] MEDS ORDERED: PROPOFOL 10 MG/ML 20 ML VIAL IV ONE (02:42)
[2020-07-09] MEDS ORDERED: HYDROmorphone (PF) 1 MG/ML ONE (02:42)
[2020-07-09] MEDS ORDERED: OXYTOCIN 10 UNIT/ML 1 ML VIAL ONE (02:42)
[2020-07-09] MEDS ORDERED: DEXAMETHASONE SOD PHOSPHATE 4 MG/ML 1 ML VIAL ONE (02:42)
[2020-07-09] MEDS ORDERED: MORPHINE SULFATE (PF) 0.3 MG/0.3 ML SYR ONE (02:42)
[2020-07-09] MEDS ORDERED: OXYTOCIN 30 UNITS/500 ML NS 30 UNIT in SALINE 1 500ML.BAG IV SCH (02:45)
--- NOTE | 2020-07-09 04:02 | P.OP ---
Date of Procedure: 07/09/20 Preoperative Diagnosis: IUP at 40 and 2, maternal fever, nonreassuring heart tones, arrest of descent Postoperative Diagnosis: Same Procedure(s) Performed: Primary low transverse section Anesthesia: epidural Surgeon: Criss Donaldson Airplane Charter Clerk #1: Ana Agee Estimated Blood Loss (ml): 1,248 IV fluids (ml): 1,000 Urine output (ml): 200 Pathology: other (Placenta) Condition: stable Disposition: observation Indications for Procedure: This is a 22-year-old G 3 para 0020 at 40-2/7 weeks that presented to labor and delivery earlier today for induction of labor secondary to postdates. Patient was admitted and Pitocin induction of labor was begun, amniotomy is performed and clear fluid was obtained. Patient progressed in labor eventually becoming uncomfortable and requesting epidural placement. Epidural was placed without difficulty by the anesthesia department. Patient progressed through maternal fever was noted, Ofirmev and antibiotics were begun. heart tones were noted to be category 3 with minimal variability therefore was discussed and patient was taken back to the operating suite. Operative Findings: Viable male infant delivered at 304, weight of 8 lbs. 6 oz. Apgars of 9-9 at one and 5 minutes respectively. Arcuate shape uterus was appreciated, normal ovaries bilaterally. Description of Procedure: Patient was taken back to the operating suite where epidural anesthesia was found be adequate by the anesthesia department. She was then prepped and draped in normal sterile fashion in the dorsal supine position. A Pfannenstiel skin incision was made the scalpel and carried through the underlying layer of fascia. Significance of today's edema was appreciated. The fascia was then incised in the midline and extended laterally. Superior aspect of the fascial incision was then grasped belen clamps, elevated and underlying rectus muscles dissected off sharply. Attention was then turned to the inferior aspect of the fascial incision which was grasped with [place] clamps, elevated and underlying rectus muscles dissected off sharply. The rectus muscles were in the midline the peritoneum was identified and entered. The bladder blade was inserted into the pelvis. The vesicouterine peritoneum was identified and the bladder flap was created. The bladder blade was then reinserted. A hysterotomy incision was made with scalpel and the infant was encountered in the vertex presentation. The infant was delivered in the usual presentation the umbilical cord was doubly clamped and cut. The placenta was delivered manually and the uterus was cleared of all clots and debris. The uterus was closed with 0 Vicryl in a running locked fashion from one lateral edge the other. Bleeding was noted on the right-hand side of the uterine incision therefore a dujbbr-mf-cqfue suture was used to obtain hemostasis. A second imbricated suture was performed. Midline bleeding was noted on the hysterotomy incision therefore multiple cqyaur-hv-vhzzv sutures were used to obtain hemostasis. The gutters were cleared of all clots and debris. The uterine incision was inspected and found to be hemostatic at this time. The uterus was returned to the abdomen the hysterotomy incision was inspected hemostasis was appreciated. The fascia was then closed with 0 Vicryl in a running locked fashion from one lateral edge the midline bleeding was then noted on the right-hand side rectus muscle therefore a gtbdty-uh-mnglr suture was used to obtain hemostasis and Surgicel powder was placed along the rectus muscle. In addition Surgicel powder was placed along the hysterotomy incision prior to closure of the fascia. The lateral edge of the fascia was then closed in a running fashion. The subcutaneous tissue was then irrigated found be hemostatic and closed with 3-0 Vicryl. The skin was then closed with 4-0 Vicryl in a subcuticular fashion. Steri-Strips were then applied. All counts were noted to be correct 2 at the end of the procedure. Patient and tolerated delivery well and are resting comfortably.
[2020-07-09] MEDS ORDERED: AMPICILLIN 1,000 MG in SODIUM CHLORIDE 0.9% 50 ML IVPB SCH (04:30)
[2020-07-09] MEDS ORDERED: ACETAMINOPHEN TAB 500 MG TAB PO SCH (05:45)
[2020-07-09] MEDS: IBUPROFEN IV 800 MG in SODIUM CHLORIDE 0.9% 250 ML IV SCH ×2 (06:27→11:57)
[2020-07-09 06:40] LABS: Basophils # (A) 0.1 k/uL (0-0.2); Basophils % (A) 0 %; Eosinophils # (A) 0.1 k/uL (0-0.7); Eosinophils % (A) 0 %; HCT 34.5 % (34.0-46.0); HGB 11.4 gm/dL (11.4-16.0); Lymphocytes # (A) 1.3 k/uL (1.0-4.8); Lymphocytes % (A) 6 %; MCH 29.8 pg (25.0-35.0); MCHC 33.2 g/dL (31.0-37.0); MCV 89.7 fL (80.0-100.0); Mean Platelet Volume 9.1; Monocytes # (A) 0.4 k/uL (0-1.0); Monocytes % (A) 2 %; Neutrophils # (A) 19.8 k/uL (1.3-7.7); Neutrophils % (A) 91 %; Platelet Count 155 k/uL (150-450); RBC 3.84 m/uL (3.80-5.40); RDW 14.4 % (11.5-15.5); WBC 21.6 k/uL (3.8-10.6)
[2020-07-09] MEDS: SENNOSIDES-DOCUSATE SODIUM 1 EACH TAB PO SCH ×2 (08:34→21:56)
[2020-07-09] MEDS: IBUPROFEN 600 MG TAB PO SCH ×2 (16:15→22:28)
[2020-07-09] MEDS: PRENATAL VIT-IRON-FOLIC ACID 1 EACH CAP PO SCH (21:00)
[2020-07-10] MEDS ORDERED: ACETAMINOPHEN IV (For NPO) 1,000 MG in EMPTY BAG 1 BAG IVPB ONE (03:15)
[2020-07-10] MEDS: LACTATED RINGERS 1,000 ML IV SCH (04:39)
[2020-07-10] MEDS: IBUPROFEN IV 800 MG in SODIUM CHLORIDE 0.9% 250 ML IV SCH (04:58)
[2020-07-10 06:05] LABS: Basophils % (A) 0 %; Eosinophils # (A) 0.2 k/uL (0-0.7); Eosinophils % (A) 1 %; HCT 30.4 % (34.0-46.0); HGB 10.6 gm/dL (11.4-16.0); Lymphocytes # (A) 4.1 k/uL (1.0-4.8); Lymphocytes % (A) 24 %; MCH 30.7 pg (25.0-35.0); MCHC 34.8 g/dL (31.0-37.0); MCV 88.1 fL (80.0-100.0); Mean Platelet Volume 8.1; Monocytes # (A) 0.5 k/uL (0-1.0); Monocytes % (A) 3 %; Neutrophils # (A) 11.7 k/uL (1.3-7.7); Neutrophils % (A) 70 %; Platelet Count 193 k/uL (150-450); RBC 3.44 m/uL (3.80-5.40); RDW 14.2 % (11.5-15.5); WBC 16.7 k/uL (3.8-10.6)
[2020-07-10] MEDS: SIMETHICONE 80 MG CHEWABLE PO PRN ×2 (07:51→13:15)
--- NOTE | 2020-07-10 08:46 | P.PNOBGPC ---
Subjective - Subjective Principal diagnosis: POD 1 LTCS maternal fever, NRFHTs Interval history: Patient is doing well postoperatively. She is ambulating and voiding without difficulty. Tolerating a regular diet. Her pain is moderately controlled. Her lochia is minimal. She is complaining of some gas discomfort. He is proceeding without difficulty. Patient reports: Reports appetite normal, Reports voiding normally, Reports ambulating normally : doing well, nursing well Objective - Vital Signs Latest vital signs: Vital Signs Temp Pulse Resp BP Pulse Ox 07/10/20 07:48 98.0 F 73 17 114/75 98 07/10/20 04:00 97.7 F 70 16 116/65 07/10/20 00:00 97.7 F 73 16 118/77 07/09/20 20:00 98.4 F 80 16 115/76 07/09/20 16:00 98.5 F 79 16 106/68 07/09/20 11:34 98.3 F 73 20 126/80 Intake and Output 07/09/20 07/10/20 07/10/20 22:59 06:59 14:59 Output Total 1250 Balance -1250 Output: Urine 1250 Other: # Voids 1 1 - Exam Extremities: Present: normal, edema Abdomen: Present: normal appearance Incision: Present: normal, intact Uterus: Present: normal, firm - Labs Labs: Abnormal Lab Results - Last 24 Hours (Table) 07/10/20 Range/Units 05:41 WBC 16.7 H (3.8-10.6) k/uL RBC 3.44 L (3.80-5.40) m/uL Hgb 10.6 L (11.4-16.0) gm/dL Hct 30.4 L (34.0-46.0) % Neutrophils # 11.7 H (1.3-7.7) k/uL Assessment and Plan (1) Post-dates Current Visit: Yes Status: Acute Code(s): O48.0 - POST-TERM SNOMED Code(s): 21015675 (2) Maternal fever during labor Current Visit: Yes Status: Acute Code(s): O75.2 - PYREXIA DURING LABOR, NOT ELSEWHERE CLASSIFIED SNOMED Code(s): 512477430 (3) Non-reassuring status Current Visit: Yes Status: Acute Code(s): RCH6792 - SNOMED Code(s): 010244528 (4) S/P section Current Visit: Yes Status: Acute Code(s): Z98.891 - HISTORY OF UTERINE SCAR FROM PREVIOUS SURGERY SNOMED Code(s): 614694744 Plan: Patient is doing well postoperatively. We will encourage increased ambulation. Stool softeners as needed. And a discharge home tomorrow.
[2020-07-10] MEDS: IBUPROFEN 600 MG TAB PO SCH ×4 (09:48→19:29)
--- NOTE | 2020-07-10 10:18 | P.PN ---
Progress Note - Text Date: 07/10/2020 Time: 07:13 The patient is status post section Vital signs stable VAS: 0-10 Patient has no complaints of pain. The patient incurred some minimal itching yesterday, this itching is now subsiding. Pain meds to be managed by service.
[2020-07-10] MEDS: SENNOSIDES-DOCUSATE SODIUM 1 EACH TAB PO SCH ×2 (11:50→20:19)
[2020-07-10] MEDS: ACETAMINOPHEN TAB 325 MG TAB PO PRN ×2 (13:15→21:20)
[2020-07-10] MEDS: PRENATAL VIT-IRON-FOLIC ACID 1 EACH CAP PO SCH (21:20)
[2020-07-11] MEDS: IBUPROFEN 600 MG TAB PO SCH ×3 (00:32→09:00)
[2020-07-11 00:53] VITALS: TEMP 98.5
[2020-07-11] MEDS: ACETAMINOPHEN TAB 325 MG TAB PO PRN ×2 (03:26→12:15)
[2020-07-11 08:57] VITALS: BP 126/80; PULSE 83; RESP 20
[2020-07-11] MEDS: SENNOSIDES-DOCUSATE SODIUM 1 EACH TAB PO SCH (09:00)
--- NOTE | 2020-07-11 09:04 | P.DS ---
Providers Date of admission: 07/08/20 13:00 Expected date of discharge: 07/11/20 Attending physician: Criss Donaldson Primary care physician: Stated None - Discharge Diagnosis(es) (1) Post-dates Current Visit: Yes Status: Acute (2) Maternal fever during labor Current Visit: Yes Status: Acute (3) Non-reassuring status Current Visit: Yes Status: Acute (4) S/P section Current Visit: Yes Status: Acute Hospital Course: This is a 22-year-old 3 para 0020 that presented to labor and delivery at 40-2/7 weeks for induction of labor secondary to postdates. Patient was admitted and Pitocin induction of labor was begun. Amniotomy was performed and thin meconium-stained fluid was appreciated. Patient progressed through labor eventually requesting epidural placement. Epidural was placed without difficulty by the anesthesia department. Patient was noted to have maternal fever in labor. Ofirmev and antibiotics were begun. heart tones were noted to have minimal variability and became category 2. Given arrest of dilation at 8 cm and maternal fever and changes in status decision was made to proceed with primary . Patient stated understanding and wishes to proceed. was performed without difficulty patient delivered a live born male at 304 on 526 weight of 8 lbs. 6 oz. and Apgars of 9 and 9 at one and 5 minutes respectively. An arcuate shaped uterus was appreciated with normal ovaries bilaterally. For full details on the please see the operative report. Patient's postoperative course has been uneventful. On this postoperative day #2 she is ambulating and voiding without difficulty. She is tolerating a regular diet without nausea or vomiting. She is breast-feeding without difficulty. Her lochia is minimal. She states she is feeling well and is taking oral ibuprofen and Tylenol for discomfort. She would like discharge home. Patient Condition at Discharge: Good Plan - Discharge Summary New Discharge Prescriptions: No Action Wfs-Drze-Coptk Acid [-U Capsule (formulary)] 1 cap PO HS Cholecalciferol [Vitamin D3 (25 Mcg = 1000 Iu)] 25 mcg PO HS Aspirin EC [Ecotrin Low Dose] 81 mg PO HS Loratadine [Claritin] 10 mg PO DAILY Discharge Medication List Dqy-Pjcb-Teiof Acid [-U Capsule (formulary)] 1 cap PO HS 07/11/18 [History] Aspirin EC [Ecotrin Low Dose] 81 mg PO HS 04/24/20 [History] Cholecalciferol [Vitamin D3 (25 Mcg = 1000 Iu)] 25 mcg PO HS 04/24/20 [History] Loratadine [Claritin] 10 mg PO DAILY 07/08/20 [History] Follow up Appointment(s)/Referral(s): Criss Donaldson DO [Doctor of Osteopathic Medicine] - 2 Weeks Patient Instructions/Handouts: (DC), (GEN) Discharge Disposition: HOME SELF-CARE
[2020-07-11] MEDS ORDERED: DIPH,PERTUS(ACELL)TETVAC-LF 0.5 ML VIAL IM ONE (09:43)
== END 2020-07-11 15:00 | disposition home or self-care (01) | DRG 787 ==
LOC: 4FBP 13:00
PROVIDERS: ADMIT Obstetrics & Gynecology Obstetrics; ATTEND Obstetrics & Gynecology Obstetrics
PROC: 10D00Z1 Extraction of Products of Conception, Low, Open Approach (ICD-10-PCS; principal; 2020-07-09 02:30)
DX: O48.0 Post-term pregnancy (principal); O75.2 Pyrexia during labor, not elsewhere classified; O62.0 Primary inadequate contractions; O62.1 Secondary uterine inertia; O76 Abnormality in fetal heart rate and rhythm complicating labor and delivery; O77.0 Labor and delivery complicated by meconium in amniotic fluid; Q51.810 Arcuate uterus; Z37.0 Single live birth; Z3A.40 40 weeks gestation of pregnancy; Z80.0 Family history of malignant neoplasm of digestive organs
CPT/HCPCS: 85025; 86850; 86900; 86901; 88307; 90471; 90715

== ENCOUNTER 2022-11-24 19:26 | Emergency (ER) | payer BC, OTHER ==
[2022-11-24 19:46] VITALS: TEMP 97.9
[2022-11-24] MEDS ORDERED: SODIUM CHLORIDE 0.9% 1,000 ML IV STA ×2 (20:58→21:07)
[2022-11-24] MEDS ORDERED: diphenhydrAMINE 50 MG/ML 1 ML VIAL IVP STA (21:06)
[2022-11-24] MEDS ORDERED: PYRIDOXINE 100 MG/ML 1 ML VIAL IVP STA (21:07)
[2022-11-24 22:14] LABS: Basophils # (A) 0.1 k/uL (0-0.2); Basophils % (A) 1 %; Eosinophils # (A) 0.1 k/uL (0-0.7); Eosinophils % (A) 1 %; HCT 40.2 % (34.0-46.0); HGB 13.9 gm/dL (11.4-16.0); Lymphocytes # (A) 2.8 k/uL (1.0-4.8); Lymphocytes % (A) 29 %; MCH 29.7 pg (25.0-35.0); MCHC 34.4 g/dL (31.0-37.0); MCV 86.4 fL (80.0-100.0); Mean Platelet Volume 8.3; Monocytes # (A) 0.2 k/uL (0-1.0); Monocytes % (A) 3 %; Neutrophils # (A) 6.5 k/uL (1.3-7.7); Neutrophils % (A) 66 %; Platelet Count 206 k/uL (150-450); RBC 4.66 m/uL (3.80-5.40); RDW 11.9 % (11.5-15.5); WBC 9.7 k/uL (3.8-10.6)
[2022-11-24] MEDS ORDERED: ONDANSETRON 4 MG/2 ML VIAL IVP STA (22:18)
[2022-11-24 22:32] LABS: ALT 16 U/L (4-34); AST 22 U/L (14-36); African American GFR (CKD) >90 (>60 ml/min/1.73 sqM); Albumin 4.8 g/dL (3.5-5.0); Alkaline Phosphatase 46 U/L (38-126); Anion Gap 13 mmol/L; Blood Urea Nitrogen 9 mg/dL (7-17); Calcium 9.5 mg/dL (8.4-10.2); Carbon Dioxide 19 mmol/L (22-30); Chloride 106 mmol/L (98-107); Glucose 91 mg/dL (74-99); Lipase 147 U/L (23-300); Non-African American GFR(CKD) >90 (>60 ml/min/1.73 sqM); Potassium 3.5 mmol/L (3.5-5.1); Sodium 138 mmol/L (137-145); Total Bilirubin 0.6 mg/dL (0.2-1.3)
[2022-11-24 23:33] LABS: Appearance,Urine Cloudy (Clear); Bacteria,Urine Moderate /hpf; Bilirubin,Urine Negative (Negative); Blood,Urine Negative (Negative); Color,Urine Colorless; Glucose,Urine (UA) Negative (Negative); Ketones,Urine Negative (Negative); Leukocyte Esterase,Urine Large (Negative); Mucus,Urine Rare /hpf; Nitrite,Urine Negative (Negative); PH, Urine 5.5 (5.0-8.0); Protein,Urine Negative (Negative); RBC,Urine 5 /hpf (0-5); Specific Gravity,Urine 1.005 (1.001-1.035); Squamous Epithelial Cell,Urine 7 /hpf (0-4); Urobilinogen,Urine <2.0 mg/dL (<2.0); WBC,Urine 6 /hpf (0-5)
[2022-11-24 23:50] LABS: HCG,Quantitative Serum 74442.1 mIU/mL
[2022-11-24] MEDS ORDERED: CEPHALEXIN 250 MG CAP PO STA (23:55)
[2022-11-25] MEDS ORDERED: METOCLOPRAMIDE 5 MG/ML 2 ML VIAL IVP STA (00:03)
[2022-11-25] MEDS ORDERED: CEPHALEXIN 250 MG CAP PO STA (00:03)
[2022-11-25] MEDS ORDERED: NITROFURANTOIN MONOHYD/M-CRYST 100 MG CAP PO STA (00:40)
[2022-11-25 00:57] VITALS: BP 114/75; PULSE 78; RESP 17
--- NOTE | 2022-11-25 01:01 | ED ---
Nausea/Vomiting/Diarrhea HPI - General Chief complaint: Nausea/Vomiting/Diarrhea Stated complaint: 6 weeks preg,vomiting Time Seen by Provider: 11/24/22 20:58 Source: patient, family Mode of arrival: ambulatory - History of Present Illness Initial comments: Patient is a 32 year old A2 female 6 weeks who presents the emergency department for vomiting. Patient reports consistent vomiting for the past 3 days now. States she has had trouble holding down food and liquid. She has history of hyperemesis gravidarum during her last . She follows with Dr. Donaldson she has not had an ultrasound yet for this . She denies fever, chills, abdominal pain, vaginal bleeding. Denies diarrhea, urinary symptoms. Denies chest pain shortness of breath, Upper respiratory symptoms. - Related Data Home Medications Medication Instructions Recorded Confirmed Veo-Irno-Pvjad Acid 1 cap PO HS 07/11/18 07/08/20 [-U Capsule (formulary)] Aspirin EC [Ecotrin Low Dose] 81 mg PO HS 04/24/20 07/08/20 Cholecalciferol [Vitamin D3 (25 25 mcg PO HS 04/24/20 07/08/20 Mcg = 1000 Iu)] Loratadine [Claritin] 10 mg PO DAILY 07/08/20 07/08/20 Previous Rx's Medication Instructions Recorded Doxylamine Succinate/Vit B6 1 tab PO DIRECTED PRN #10 tab 11/25/22 [Amanda Rodriguez 10-10 mg Tablet] Nitrofurantoin Monohyd/M-Cryst 100 mg PO Q12HR #10 cap 11/25/22 [Macrobid] Allergies Allergy/AdvReac Type Severity Reaction Status Date / Time avocado Allergy Anaphylaxis Verified 11/24/22 19:38 codeine Allergy Nausea & Verified 11/24/22 19:38 DIARRHEA kiwi Allergy Anaphylaxis Verified 11/24/22 19:38 peanut Allergy Anaphylaxis Verified 11/24/22 19:38 sesame oil Allergy Anaphylaxis Verified 11/24/22 19:38 Sulfa (Sulfonamide Allergy Rash/Hives Verified 11/24/22 19:38 Antibiotics) tree nut Allergy Anaphylaxis Verified 11/24/22 19:38 Review of Systems ROS Statement: Those systems with pertinent positive or pertinent negative responses have been documented in the HPI. ROS Other: All systems not noted in ROS Statement are negative. Past Medical History Past Medical History: GERD/Reflux History of Any Multi-Drug Resistant Organisms: MRSA Date of last positivie culture/infection: 09/23/17 MDRO Source:: WOUND-VAGINA Past Surgical History: Adenoidectomy, Orthopedic Surgery, Tonsillectomy Additional Past Surgical History / Comment(s): LEFT MIDDLE FINGER SURGERY, Past Anesthesia/Blood Transfusion Reactions: Motion Sickness Past Psychological History: Anxiety Smoking Status: Never smoker Past Alcohol Use History: Occasional Past Drug Use History: None Reported - Past Family History Father Family Medical History: Cancer Additional Family Medical History / Comment(s): COLON CANCER General Exam General appearance: alert Head exam: Present: atraumatic, normocephalic, normal inspection ENT exam: Present: mucous membranes dry Respiratory exam: Present: normal lung sounds bilaterally. Absent: respiratory distress, wheezes, rales, rhonchi, stridor Cardiovascular Exam: Present: regular rate, normal rhythm, normal heart sounds. Absent: systolic murmur, diastolic murmur, rubs, gallop, clicks GI/Abdominal exam: Present: soft, normal bowel sounds. Absent: distended, tenderness, guarding, rebound, rigid Neurological exam: Present: alert Psychiatric exam: Present: normal affect, normal mood Skin exam: Present: warm, dry, intact, normal color. Absent: rash Course Vital Signs 11/24/22 11/25/22 19:34 00:50 Temperature 97.9 F Pulse Rate 87 78 Respiratory 18 17 Rate Blood Pressure 123/78 114/75 O2 Sat by Pulse 100 98 Oximetry Medical Decision Making - Medical Decision Making Was pt. sent in by a medical professional or institution (, PA, WASH DRILLER HELPER, urgent care, hospital, or usp...) When possible be specific @ -No Did you speak to anyone other than the patient for history (EMS, parent, family, police, friend...)? What history was obtained from this source @ -No Did you review nursing and triage notes (agree or disagree)? Why? @ -I reviewed and agree with nursing and triage notes Were old charts reviewed (outside hosp., previous admission, EMS record, old EKG , old radiological studies, urgent care reports/EKG's, usp records)? Report findings @ -No old charts were reviewed Differential Diagnosis (chest pain, altered mental status, abdominal pain women, abdominal pain men, vaginal bleeding, weakness, fever, dyspnea, syncope, headache, dizziness, GI bleed, back pain, seizure, CVA, palpatations, mental health)? @ -Differential Abdominal Pain Women: Appendicitis, Cholecystitis, diverticulosis, ischemic bowel, pancreatitis, hepatitis, UTI, gastroenteritis, AAA, incarcerated hernia, bowel obstruction, constipation, inflammatory bowel, hepatitis, peptic ulcer disease, splenic infarction, perforated viscus, vulvitis, ovarian torsion, PID, kidney stone, placenta abruption, this is not meant to be an all-inclusive list EKG interpreted by me (3pts min.). @ -As above X-rays interpreted by me (1pt min.). @ -None done CT interpreted by me (1pt min.). @ -None done U/S interpreted by me (1pt. min.). @ -None done What testing was considered but not performed or refused? (CT, X-rays, U/S, labs)? Why? @ -Patient declined cepheid testing states she is not sick with URI. What meds were considered but not given or refused? Why? @ -None Did you discuss the management of the patient with other professionals (professionals i.e. , PA, WASH DRILLER HELPER, lab, RT, psych nurse, social media analyst, services clerk, teacher, dog license officer supervisor, case management associate)? Give summary @ -No Was smoking cessation discussed for >3mins.? @ -No Was critical care preformed (if so, how long)? @ -No Were there social determinants of health that impacted care today? How? (Homelessness, low income, unemployed, alcoholism, drug addiction, transportation, low edu. Level, literacy, decrease access to med. care, fci, rehab)? @ -No Was there de-escalation of care discussed even if they declined (Discuss DNR or withdrawal of care, Hospice)? DNR status @ -No What co-morbidities impacted this encounter? (DM, HTN, Smoking, COPD, CAD, Cancer, CVA, ARF, Chemo, Hep., AIDS, mental health diagnosis, sleep apnea, morbid obesity)? @ -None Was patient admitted / discharged? Hospital course, mention meds given and route, prescriptions, significant lab abnormalities, going to OR and other pertinent info. @ -32-year-old in first trimester presenting for vomiting. No abdominal pain or vaginal bleeding. Patient given large fluid bolus, vitamin B6, Benadryl. She continued to have dry heaving. She was then given a dose of Zofran she did have improvement of vomiting but still felt very nauseous. After a dose of Reglan patient felt improved. She did not have any further episodes of vomiting or dry heaves. Patient does have bacteria in her urine although contaminated by squamous cells. With history of miscarriage will treat for possible asymp tomatic bacteriuria. No other significant abnormalities in labs. Patient in stable medical condition for discharge. She is diclegis and will follow up with Dr. Donaldson. Undiagnosed new problem with uncertain prognosis? @ -No Drug Therapy requiring intensive monitoring for toxicity (Heparin, Nitro, Insulin, Cardizem)? @ -No] Were any procedures done? @ -[No] Diagnosis/symptom? @ -vomiting during Acute, or Chronic, or Acute on Chronic? @ -acute Uncomplicated (without systemic symptoms) or Complicated (systemic symptoms)? @ -uncomplicated Side effects of treatment? @ -[No] Exacerbation, Progression, or Severe Exacerbation? @ -[No] Poses a threat to life or bodily function? How? (Chest pain, [place], [place], pneumonia, PE, COPD, DKA, ARF, appy, cholecystitis, CVA, Diverticulitis, Homicidal, Suicidal, threat to staff... and all critical care pts) @ -[No] Dr. Key is my attending - Lab Data Result diagrams: 11/24/22 21:37 11/24/22 21:37 Lab Results 11/24/22 11/24/22 11/24/22 Range/Units 21:37 21:37 23:00 WBC 9.7 (3.8-10.6) k/uL RBC 4.66 (3.80-5.40) m/uL Hgb 13.9 (11.4-16.0) gm/dL Hct 40.2 (34.0-46.0) % MCV 86.4 (80.0-100.0) fL MCH 29.7 (25.0-35.0) pg MCHC 34.4 (31.0-37.0) g/dL RDW 11.9 (11.5-15.5) % Plt Count 206 (150-450) k/uL MPV 8.3 Neutrophils % 66 % Lymphocytes % 29 % Monocytes % 3 % Eosinophils % 1 % Basophils % 1 % Neutrophils # 6.5 (1.3-7.7) k/uL Lymphocytes # 2.8 (1.0-4.8) k/uL Monocytes # 0.2 (0-1.0) k/uL Eosinophils # 0.1 (0-0.7) k/uL Basophils # 0.1 (0-0.2) k/uL Sodium 138 (137-145) mmol/L Potassium 3.5 (3.5-5.1) mmol/L Chloride 106 (98-107) mmol/L Carbon Dioxide 19 L (22-30) mmol/L Anion Gap 13 mmol/L BUN 9 (7-17) mg/dL Creatinine 0.53 (0.52-1.04) mg/dL Est GFR (CKD-EPI)AfAm >90 (>60 ml/min/1.73 sqM) Est GFR (CKD-EPI)NonAf >90 (>60 ml/min/1.73 sqM) Glucose 91 (74-99) mg/dL Calcium 9.5 (8.4-10.2) mg/dL Total Bilirubin 0.6 (0.2-1.3) mg/dL AST 22 (14-36) U/L ALT 16 (4-34) U/L Alkaline Phosphatase 46 (38-126) U/L Total Protein 8.0 (6.3-8.2) g/dL Albumin 4.8 (3.5-5.0) g/dL Lipase 147 (23-300) U/L HCG, Quant 69349.1 mIU/mL Urine Color Colorless Urine Appearance Cloudy H (Clear) Urine pH 5.5 (5.0-8.0) Ur Specific [place] 1.005 (1.001-1.035) Urine Protein Negative (Negative) Urine Glucose (UA) Negative (Negative) Urine Ketones Negative (Negative) Urine Blood Negative (Negative) Urine Nitrite Negative (Negative) Urine Bilirubin Negative (Negative) Urine Urobilinogen <2.0 (<2.0) mg/dL Ur Leukocyte Esterase Large H (Negative) Urine RBC 5 (0-5) /hpf Urine WBC 6 H (0-5) /hpf Ur Squamous Epith Cells 7 H (0-4) /hpf Urine Bacteria Moderate H (None) /hpf Urine Mucus Rare H (None) /hpf Disposition Clinical Impression: Asymptomatic bacteriuria, Nausea and vomiting during Disposition: HOME SELF-CARE Condition: Good Instructions (If sedation given, give patient instructions): Nausea and Vomit ing in (ED) Additional Instructions: Increase fluid intake as tolerated. Take medication as directed. If prescription of Diclegis is too expensive, use of [id number]-mng-abpsayf vitamin B6 and Unisom when taken together will work similar to Diclegis. Do not operate machinery while taking Unisom as it is a sleep aid. Follow-up with assistant banquet manager in 1-2 days. Return to the emergency department if you experience new, concerning, or worsening symptoms. Prescriptions: Doxylamine Succinate/Vit B6 [Diclegis Dr 10-10 mg Tablet] 1 tab PO DIRECTED PRN #10 tab PRN Reason: Nausea Nitrofurantoin Monohyd/M-Cryst [Macrobid] 100 mg PO Q12HR #10 cap Is patient prescribed a controlled substance at d/c from ED?: No Referrals: Criss Donaldson DO [Primary Care Provider] - 1-2 days
== END 2022-11-25 01:45 | disposition home or self-care (01) ==
LOC: EC 19:26
DX: O23.91 Unspecified genitourinary tract infection in pregnancy, first trimester (principal); R82.71 Bacteriuria; O26.891 Other specified pregnancy related conditions, first trimester; R11.2 Nausea with vomiting, unspecified; Z79.82 Long term (current) use of aspirin; Z86.59 Personal history of other mental and behavioral disorders; Z88.5 Allergy status to narcotic agent; Z91.010 Allergy to peanuts; Z88.2 Allergy status to sulfonamides; Z91.018 Allergy to other foods
CPT/HCPCS: 36415; 80053; 83690; 85025; 81001; 84702; 99284; 96374; 96375 ×3; J1200; J3415; J2405; 99281

== ENCOUNTER 2023-07-14 09:58 | Inpatient (IN) | payer BC ==
[2023-07-14] MEDS ORDERED: METHYLERGONOVINE 0.2 MG/ML 1 ML AMP IM PRN (10:20)
[2023-07-14] MEDS ORDERED: TERBUTALINE 1 MG/ML VIAL SQ PRN (10:20)
[2023-07-14] MEDS ORDERED: TRANEXAMIC 1,000 MG/100ML-NACL 1,000 MG in EMPTY BAG 1 BAG IV PRN (10:20)
[2023-07-14] MEDS ORDERED: LIDOCAINE 0.5% (PF) 5 MG/ML (50 ML SDV) SQ PRN (10:20)
[2023-07-14] MEDS ORDERED: OXYTOCIN 10 UNIT/ML 1 ML VIAL IM PRN (10:20)
[2023-07-14] MEDS ORDERED: CARBOPROST TROMETHAMINE 250 MCG/ML 1 ML AMP IM PRN (10:20)
[2023-07-14] MEDS ORDERED: miSOPROStoL 200 MCG TAB PO PRN (10:20)
[2023-07-14 11:15] LABS: Basophils # (A) 0.1 k/uL (0-0.2); Basophils % (A) 1 %; Eosinophils # (A) 0.2 k/uL (0-0.7); Eosinophils % (A) 2 %; HCT 40.6 % (34.0-46.0); Lymphocytes # (A) 2.2 k/uL (1.0-4.8); Lymphocytes % (A) 15 %; MCH 29.7 pg (25.0-35.0); MCHC 31.9 g/dL (31.0-37.0); MCV 93.1 fL (80.0-100.0); Mean Platelet Volume 8.8; Monocytes # (A) 0.4 k/uL (0-1.0); Monocytes % (A) 3 %; Neutrophils # (A) 11.1 k/uL (1.3-7.7); Neutrophils % (A) 79 %; Platelet Count 178 k/uL (150-450); RBC 4.36 m/uL (3.80-5.40); RDW 13.4 % (11.5-15.5); WBC 14.1 k/uL (3.8-10.6)
[2023-07-14] MEDS: CITRIC ACID-SODIUM CITRATE 15 ML CUP PO ONE (11:40)
[2023-07-14] MEDS: LACTATED RINGERS 1,000 ML IV SCH ×2 (11:46→21:43)
[2023-07-14] MEDS ORDERED: MORPHINE SULFATE (PF) 0.3 MG/0.3 ML SYR ONE (11:55)
[2023-07-14] MEDS ORDERED: ONDANSETRON 4 MG/2 ML VIAL ONE (11:55)
[2023-07-14] MEDS ORDERED: ePHEDrine 50 MG/ML 1 ML VIAL ONE (11:55)
[2023-07-14] MEDS ORDERED: fentaNYL (PF) 50 MCG/ML 2 ML AMP ONE (11:55)
[2023-07-14] MEDS ORDERED: OXYTOCIN 30 UNITS/500 ML NS BAG IV ONE (11:55)
[2023-07-14] MEDS ORDERED: NALBUPHINE 10 MG/ML (10 ML MDV) ONE (11:55)
[2023-07-14] MEDS ORDERED: ONDANSETRON 4 MG/2 ML VIAL IVP PRN (12:59)
[2023-07-14] MEDS ORDERED: diphenhydrAMINE 50 MG/ML 1 ML VIAL IVP PRN ×2 (12:59)
[2023-07-14] MEDS ORDERED: METOCLOPRAMIDE 5 MG/ML 2 ML VIAL IVP PRN (12:59)
[2023-07-14] MEDS ORDERED: diphenhydrAMINE 50 MG CAP PO PRN (12:59)
[2023-07-14] MEDS ORDERED: NALOXONE 0.4 MG/ML 1 ML VIAL IV PRN (12:59)
[2023-07-14] MEDS ORDERED: diphenhydrAMINE 25 MG CAP PO PRN (12:59)
[2023-07-14] MEDS ORDERED: ZOLPIDEM 5 MG TAB PO PRN (12:59)
--- NOTE | 2023-07-14 13:16 | P.OP ---
Date of Procedure: 07/14/23 Preoperative Diagnosis: 2P at 39 weeks, history of x 1, desires repeat Postoperative Diagnosis: Same Procedure(s) Performed: Repeat section Anesthesia: spinal Surgeon: Criss Donaldson Receiver/Laborer #1: David Donahue Estimated Blood Loss (ml): 375 IV fluids (ml): 1,200 Urine output (ml): 100 Pathology: none sent Condition: stable Disposition: observation Indications for Procedure: History of x 1, desires repeat Operative Findings: Viable female delivered at weight of 8 pounds 8 ounces, Extremely thin lower uterine segment was appreciated. Thin meconium stained fluid was noted at delivery Description of Procedure: The patient was prepped and draped in the usual fashion after spinal anesthesia was administered by anesthesia department A Pfannenstiel incision was made and extended of the abdominal cavity without difficulty. The bladder peritoneum was elevated and incised and reflected distally. A 2 cm incision was made in the transverse plane of the lower uterine segment to enter the uterus at which time clear fluid was noted. The incision was extended in both directions bluntly. The head was encountered within the field and delivered up and through the incision where the nose and mouth were thoroughly suctioned. Remainder of the was delivered onto the surgical field where the cord was doubly clamped, cut, and the infant was passed for resuscitative measures with weight and Apgars as noted above. The placenta was delivered manually, intact, and was grossly normal with a grossly normal three-vessel cord. The uterus was exteriorized and the interior cavity of the uterus swept of any remaining placental and membranous fragments with a laparotomy sponge. The margins of the incision were grasped with Allis clamps and the incision closed in 2 layers. First layer was a running locking layer of 0 Vicryl from margin to margin followed by a second layer of imbricating 0 Vicryl from margin to margin. Any small points of bleeding were then made hemostatic with the Bovie. Once hemostasis was achieved, the posterior cul-de-sac was suctioned with a guard and the uterine and ovarian findings are as noted above. The uterus was replaced within the abdominal cavity and the gutters swept of any remaining blood fluid or clot. The incision was again reexamined and hemostasis was noted to be excellent. Any small point of bleeding were made hemostatic with the Bovie. Once hemostasis was achieved the parietal peritoneum was loosely reapproximated. The layer of muscles were examined and made hemostatic with the Bovie. Attention was then turned to the fascia was closed in a running fashion from 1 lateral edge to the other. The subcutaneous tissues were irrigated, made hemostatic with the Bovie, and reapproximated with a running stitch of 30 plain catgut. The skin was reapproximated with regular surgical ignacio. Estimated blood loss for the case was approximately 357 mL. All sponge instrument and needle counts are correct. There were no complications. The patient tolerated the procedure well and proceeded to the recovery room in stable condition. Both mother and infant are resting comfortably in recovery.
--- NOTE | 2023-07-14 13:16 | P.HPOB ---
History of Present Illness H&P Date: 07/14/23 Chief Complaint: IUP at 39 weeks, history of x 1, desires repeat 33-year-old G2, P1 at 31 weeks that presents for scheduled repeat section. Patient has a prior history of a desires repeat. Patient has been receiving routine care with myself which has been essentially uncomplicated. She does note good movement denies contractions or vaginal bleeding. blood work this patient is a blood type of A+, rubella status immune, hepatitis B surface engine negative, HIV negative, RPR is nonreactive, group A strep culture is positive. Review of Systems Constitutional: Denies chills, Denies fatigue, Denies fever Ears, nose, mouth and throat: Denies headache Cardiovascular: Reports leg edema Respiratory: Denies dyspnea Gastrointestinal: Denies constipation, Denies diarrhea, Denies nausea, Denies vomiting Genitourinary: Reports Past Medical History Past Medical History: GERD/Reflux Additional Past Medical History / Comment(s): proned to boils/abscesses - has had on many areas of the body, last treatment w/ antibiotics was 2020 History of Any Multi-Drug Resistant Organisms: MRSA Date of last positivie culture/infection: 09/23/17 MDRO Source:: WOUND-VAGINA Past Surgical History: Adenoidectomy, Section, Orthopedic Surgery, Tonsillectomy Additional Past Surgical History / Comment(s): LEFT MIDDLE FINGER SURGERY, D & C x 2 Past Anesthesia/Blood Transfusion Reactions: Motion Sickness Smoking Status: Former smoker - Past Family History Father Family Medical History: Cancer Additional Family Medical History / Comment(s): COLON CANCER Medications and Allergies Home Medications Medication Instructions Recorded Confirmed Type Nfa-Rsdi-Nawds Acid 1 cap PO HS 07/11/18 07/14/23 History [-U Capsule (formulary)] Aspirin EC [Ecotrin Low Dose] 81 mg PO HS 04/24/20 07/14/23 History Famotidine [Pepcid] 20 mg PO DAILY 05/28/23 07/14/23 History EPINEPHrine (Auto Inject) [Epipen] 0.3 mg IM ONCE PRN 07/12/23 07/12/23 History Loratadine [Claritin] 10 mg PO HS 07/12/23 07/14/23 History Allergies Allergy/AdvReac Type Severity Reaction Status Date / Time avocado Allergy Anaphylaxis Verified 07/14/23 10:19 codeine Allergy Nausea & Verified 07/14/23 10:19 DIARRHEA kiwi Allergy Anaphylaxis Verified 07/14/23 10:19 cl Allergy Anaphylaxis Verified 07/14/23 10:19 peanut Allergy Anaphylaxis Verified 07/14/23 10:19 rhubarb Allergy Anaphylaxis Verified 07/14/23 10:19 sesame oil Allergy Anaphylaxis Verified 07/14/23 10:19 Sulfa (Sulfonamide Allergy Rash/Hives Verified 07/14/23 10:19 Antibiotics) tree nut Allergy Anaphylaxis Verified 07/14/23 10:19 amoxicillin [From Augmentin] AdvReac Diarrhea Verified 07/14/23 10:19 cephalexin [From Keflex] AdvReac Diarrhea Verified 07/14/23 10:19 clavulanic acid AdvReac Diarrhea Verified 07/14/23 10:19 [From Augmentin] Exam Osteopathic Statement: *. No significant issues noted on an osteopathic structural exam other than those noted in the History and Physical/Consult. Targeted physical exam is performed this date General is well-nourished well- developed female in no acute distress, breathing is nonlabored, heart has a regular urine, abdomen is gravid, cervical exam is deferred, heart tones are noted to be category 1 and she is alejandro irregularly. Results Result Diagrams: 07/14/23 10:35 Assessment and Plan (1) Term Current Visit: Yes Status: Acute Code(s): Z34.90 - ENCNTR FOR SUPRVSN OF NORMAL , UNSP, UNSP TRIMESTER SNOMED Code(s): 47020706 (2) History of Current Visit: Yes Status: Acute Code(s): Z98.891 - HISTORY OF UTERINE SCAR FROM PREVIOUS SURGERY SNOMED Code(s): 020131595 Plan: 33-year-old -0-2-1 at 39 weeks that presents for repeat section. Patient has a prior history of upon counseling requested repeat section. Surgery is reviewed and questions were answered. Patient states understanding and will proceed to OR.
[2023-07-14] MEDS: ACETAMINOPHEN IV (For NPO) 1,000 MG in EMPTY BAG 1 BAG IVPB SCH (14:03)
[2023-07-14] MEDS: IBUPROFEN IV 800 MG in SODIUM CHLORIDE 0.9% 250 ML IV SCH (18:01)
[2023-07-14] MEDS: SENNOSIDES-DOCUSATE SODIUM 1 EACH TAB PO SCH (20:47)
[2023-07-15] MEDS: IBUPROFEN 600 MG TAB PO SCH (02:23)
[2023-07-15] MEDS: ACETAMINOPHEN TAB 500 MG TAB PO SCH (03:43)
[2023-07-15] MEDS: PRENATAL VIT-IRON-FOLIC ACID 1 EACH TABLET PO SCH (04:00)
[2023-07-15 05:47] LABS: Basophils # (A) 0.1 k/uL (0-0.2); Basophils % (A) 0 %; Eosinophils # (A) 0.2 k/uL (0-0.7); Eosinophils % (A) 1 %; HCT 35.6 % (34.0-46.0); HGB 11.5 gm/dL (11.4-16.0); Lymphocytes # (A) 2.6 k/uL (1.0-4.8); Lymphocytes % (A) 19 %; MCH 30.8 pg (25.0-35.0); MCHC 32.3 g/dL (31.0-37.0); MCV 95.2 fL (80.0-100.0); Mean Platelet Volume 8.6; Monocytes # (A) 0.5 k/uL (0-1.0); Monocytes % (A) 4 %; Neutrophils # (A) 10.1 k/uL (1.3-7.7); Neutrophils % (A) 74 %; Platelet Count 145 k/uL (150-450); RBC 3.74 m/uL (3.80-5.40); RDW 13.4 % (11.5-15.5); WBC 13.6 k/uL (3.8-10.6)
--- NOTE | 2023-07-15 08:43 | P.PNOBGPC ---
Subjective - Subjective Principal diagnosis: Postop day 1, repeat section Interval history: Patient is feeling well this morning. She is ambulating and voiding without difficulty. She is tolerating a regular diet without nausea or vomiting. She states her pain is well-controlled. Lochia is minimal. She notes positive flatus Patient reports: Reports appetite normal, Reports voiding normally, Reports pain well controlled, Reports ambulating normally : doing well Objective - Vital Signs Latest vital signs: Vital Signs Temp Pulse Resp BP Pulse Ox 07/15/23 00:15 98.0 F 79 16 118/72 99 07/14/23 20:00 98.7 F 90 16 111/70 95 07/14/23 15:46 98.5 F 88 16 135/77 07/14/23 14:47 99.0 F 90 16 137/80 07/14/23 14:32 98.2 F 88 16 122/62 07/14/23 14:17 97.7 F 83 16 122/63 07/14/23 14:02 97.7 F 78 16 108/60 07/14/23 13:47 97.3 F L 83 16 122/63 07/14/23 13:32 81 16 135/70 07/14/23 13:17 98.3 F 84 16 136/65 07/14/23 13:02 97.6 F 80 16 138/60 07/14/23 12:47 97.3 F L 100 16 146/66 07/14/23 10:40 97.2 F L 97 18 118/73 97 Intake and Output 07/14/23 07/15/23 07/15/23 22:59 06:59 14:59 Intake Total 150 1600 Output Total 950 1100 Balance -800 500 Intake: IV 1000 Oral 150 600 Output: Urine 950 1100 Straight 150 1100 Other: # Voids 1 - Exam Extremities: Present: normal, edema Abdomen: Present: normal appearance, soft Incision: Present: normal, dry, intact Uterus: Present: normal, firm - Labs Labs: Abnormal Lab Results - Last 24 Hours (Table) 07/14/23 07/15/23 Range/Units 10:35 05:06 WBC 14.1 H 13.6 H (3.8-10.6) k/uL RBC 3.74 L (3.80-5.40) m/uL Plt Count 145 L (150-450) k/uL Neutrophils # 11.1 H 10.1 H (1.3-7.7) k/uL Assessment and Plan (1) Term Current Visit: Yes Status: Acute Code(s): Z34.90 - ENCNTR FOR SUPRVSN OF NORMAL , UNSP, UNSP TRIMESTER SNOMED Code(s): 12515055 (2) History of Current Visit: Yes Status: Acute Code(s): Z98.891 - HISTORY OF UTERINE SCAR FROM PREVIOUS SURGERY SNOMED Code(s): 315920222 (3) S/P section Current Visit: No Status: Acute Code(s): Z98.891 - HISTORY OF UTERINE SCAR FROM PREVIOUS SURGERY SNOMED Code(s): 744161533 Plan: Patient is doing well postoperatively. Will continue routine postoperative care and anticipate discharge home tomorrow.
--- NOTE | 2023-07-15 12:22 | P.PN ---
Progress Note - Text Progress Note Date: 07/15/23 Postoperative day 1 status post section under spinal anesthesia, and intrathecal morphine given for postoperative analgesia, patient doing well, there is no anesthesia related complications, Patient had no headache, vital signs stable , Assessment and plan= postop day 1 status post , doing well there is no anesthesia related complication.
[2023-07-16] MEDS: SIMETHICONE 80 MG CHEWABLE PO PRN (04:14)
--- NOTE | 2023-07-16 07:59 | P.DS ---
Providers Date of admission: 07/14/23 09:58 Expected date of discharge: 07/16/23 Attending physician: Criss Donaldson Primary care physician: Stated None - Discharge Diagnosis(es) (1) Term Current Visit: Yes Status: Acute (2) History of Current Visit: Yes Status: Acute (3) S/P section Current Visit: No Status: Acute Hospital Course: This is a 33-year-old 4 now para 2-0-2-2 that presented to labor and delivery for scheduled repeat section on 07/13. Patient had been receiving routine care which had been essentially uncomplicated. For full details of this patient please see the dictated history and physical. Patient was taken back to the operating suite for scheduled repeat section. Patient delivered a viable female infant at 1213, weight of 8 pounds 8 ounces, Apgars of 9 and 10 at 1 and 5 minutes respectively. For full details of the section please see the dictated operative report. Patient has done well postoperatively. On this postoperative day #2 she is ambulating and voiding without difficulty. She is tolerating a regular diet without nausea or vomiting. She states her pain is well-controlled. She denies concerns and would like discharge home later today. Patient Condition at Discharge: Good Plan - Discharge Summary Discharge Rx Participant: Yes New Discharge Prescriptions: No Action Wnv-Ofoh-Cepes Acid [-U Capsule (formulary)] 1 cap PO HS Aspirin EC [Ecotrin Low Dose] 81 mg PO HS EPINEPHrine (Auto Inject) [Epipen] 0.3 mg IM ONCE PRN PRN Reason: Anaphylaxis Famotidine [Pepcid] 20 mg PO DAILY Loratadine [Claritin] 10 mg PO HS Discharge Medication List Wpv-Gxum-Lskgt Acid [-U Capsule (formulary)] 1 cap PO HS 07/11/18 [History] Aspirin EC [Ecotrin Low Dose] 81 mg PO HS 04/24/20 [History] Famotidine [Pepcid] 20 mg PO DAILY 05/28/23 [History] EPINEPHrine (Auto Inject) [Epipen] 0.3 mg IM ONCE PRN 07/12/23 [History] Loratadine [Claritin] 10 mg PO HS 07/12/23 [History] Follow up Appointment(s)/Referral(s): Criss Donaldson DO [Doctor of Osteopathic Medicine] - 08/25/23 1:00 pm (Post C/S Appointment 07-27-2023 at 3:45pm) Patient Instructions/Handouts: (DC), (GEN) Activity/Diet/Wound Care/Special Instructions: No intercourse, tub baths. No heavy lifting greater than a gallon of milk. No driving for two weeks. Call with any fever, shakes or chills, with any pain not alleviated by over the counter meds, or with any quesions or concerns. Ejbd-kqd-kiwmgeh ibuprofen 600 mg or 3 tablets every 6 hours as needed for pain Discharge Disposition: HOME SELF-CARE
[2023-07-16 09:17] VITALS: BP 118/78; PULSE 80; RESP 16; TEMP 98.2
== END 2023-07-16 13:05 | disposition home or self-care (01) | DRG 788 ==
LOC: 4FBP 09:58
PROVIDERS: ADMIT Obstetrics & Gynecology Obstetrics; ATTEND Obstetrics & Gynecology Obstetrics
PROC: 10D00Z1 Extraction of Products of Conception, Low, Open Approach (ICD-10-PCS; principal; 2023-07-14 12:00)
DX: O34.211 Maternal care for low transverse scar from previous cesarean delivery (principal); O77.0 Labor and delivery complicated by meconium in amniotic fluid; Z37.0 Single live birth; Z3A.39 39 weeks gestation of pregnancy; Z87.891 Personal history of nicotine dependence
CPT/HCPCS: 85025; 86850; 86900; 86901

== ENCOUNTER → 2023-12-01 | Outpatient (CLI) | payer BC ==
--- NOTE | 2023-12-01 11:14 | US ---
EXAMINATION TYPE: US abdomen complete DATE OF EXAM: 12/01/2023 COMPARISON: 06/09/2011 CLINICAL INDICATION: Female, 33 years old with history of R10.11 PAIN RUQ; Midline/umbilical pain x y ears - worsening in the last week with constipation, nausea, and vomiting TECHNIQUE: Grayscale and color Doppler imaging of the abdomen was performed. FINDINGS: EXAM MEASUREMENTS: Liver Length: 14.0 cm Gallbladder Wall: 0.1 cm CBD: 0.2 cm Spleen: 12.0 cm Right Kidney: 10.7 x 4.1 x 5.4 cm Left Kidney: 12.7 x 5.9 x 5.3 cm MERCHANDISING LEAD NOTES: Pancreas: wnl Liver: wnl Gallbladder: wnl Evidence for sonographic Chou's sign: No CBD: wnl Spleen: wnl Right Kidney: Prominent renal pelvis Left Kidney: Prominent renal pelvis Upper IVC: wnl Abd Aorta: wnl The liver is homogenous. The intrahepatic portion of the IVC and proximal abdominal aorta are within normal limits. There is no evidence of cholelithiasis. Common bile duct is unremarkable. The visu alized portions of the pancreas are homogenous. The spleen is unremarkable. Kidneys are symmetric a nd free of hydronephrosis. No renal lesions are seen. IMPRESSION: No evidence for acute process. [facility], , 12/01/2023 11:12 AM
== END | disposition home or self-care (01) ==
LOC: RADUSWWP 10:27
PROVIDERS: ATTEND Family Medicine
DX: R10.11 Right upper quadrant pain (principal)
CPT/HCPCS: 76700